=== PATIENT | male | born 1955 | race Caucasian/White ===

== ENCOUNTER → 2016-09-29 | Outpatient (CLI) | payer BC | LOC: MW.CHFP 10:28 | PROVIDERS: ATTEND Student in an Organized Health Care Education/Training Program | DX: J02.9 Acute pharyngitis, unspecified (principal) | CPT/HCPCS: 87081; 87880 ==

== ENCOUNTER 2018-07-11 09:33 | Day surgery (SDC) | payer BC ==
[~2018-07-11 09:33] MED LIST: Lactated Ringers 1,000 ML IV SCH; Sodium Chloride 0.9% 10 ML Syringe FLUSH PRN; Sodium Chloride 0.9% 2.5 ML Syringe FLUSH PRN
--- NOTE | 2018-07-11 10:23 | PCM.PREANE ---
Preanesthetic Assessment - Anesthesia/Transfusion/Family Hx Anesthesia History: Prior Anesthesia Reaction Other Type of Anesthesia Reaction Comment: very agitated when awakening Family History of Anesthesia Reaction: No Transfusion History: No Prior Transfusion(s) Intubation History: Unknown - Review of Systems General: No Symptoms Pulmonary: No Symptoms Cardiovascular: No Symptoms Gastrointestinal: No Symptoms, Other (h/o colon polyps) Neurological: No Symptoms Other: Reports: None - Physical Assessment O2 Sat by Pulse Oximetry: 94 Respiratory Rate: 16 Vital Signs: Last Vital Signs Temp 36.2 C 07/11/18 10:07 Pulse 74 07/11/18 10:07 Resp 16 07/11/18 10:07 BP 137/84 07/11/18 10:07 Pulse Ox 94 L 07/11/18 10:07 Height: 1.88 m Weight: 106.594 kg ASA Class: 3 Mental Status: Alert & Oriented x3 Airway Class: Mallampati = 2 Dentition: Reports: Normal Dentition Thyro-Mental Finger Breadths: 3 Mouth Opening Finger Breadths: 3 ROM/Head Extension: Full Lungs: Clear to Auscultation, Normal Respiratory Effort Cardiovascular: Regular Rate, Regular Rhythm - Allergies Allergies/Adverse Reactions: Allergies Allergy/AdvReac Type Severity Reaction Status Date / Time No Known Allergies Allergy Verified 07/06/18 12:57 - Blood Blood Available: No - Anesthesia Plan Pre-Op Medication Ordered: None - Acknowledgements Anesthesia Type Planned: MAC Pt an Appropriate Candidate for the Planned Anesthesia: Yes Alternatives and Risks of Anesthesia Discussed w Pt/Guardian: Yes Pt/Guardian Understands and Agrees with Anesthesia Plan: Yes PreAnesthesia Questionnaire HEENT History: Reports: Cataract, Hard of Hearing, Other (See Below) Other HEENT History: wears glasses Cardiovascular History: Reports: High Cholesterol, Hypertension Gastrointestinal History: Reports: Colon Polyp, GERD, Hiatal Hernia Other Gastrointestinal History: no GERD symptoms for 5 years Genitourinary History: Reports: None Musculoskeletal History: Reports: Fracture Other Musculoskeletal History: hx of fx L5 Endocrine/Metabolic History: Reports: Diabetes, Type II, Obesity/BMI 30+ - Past Surgical History GI Surgical History: Reports: Colonoscopy (x2 '12 and ) Male Surgical History: Reports: Vasectomy - SUBSTANCE USE Smoking Status *Q: Never Smoker Recreational Drug Use History: No - HOME MEDS Home Medications: Home Meds Aspirin [Adult Low Dose Aspirin EC] 81 mg PO DAILY 07/06/18 [History] Dapagliflozin Propanediol [Farxiga] 10 mg PO QAM 07/06/18 [History] Lisinopril/Hydrochlorothiazide [Lisinopril-Hctz 20-25 mg Tab] 1 tab PO QAM 07/06 [History] Simvastatin [Zocor] 40 mg PO BEDTIME 07/06/18 [History] metFORMIN HCl [Metformin HCl] 1,000 mg PO BID 07/06/18 [History] - CURRENT (IN HOUSE) MEDS Current Meds: Current Medications Lactated Ringer's (Ringers, Lactated) 1,000 mls @ 125 mls/hr IV ASDIRECTED TANNA Sodium Chloride (Saline Flush) 10 ml FLUSH ASDIRECTED PRN PRN Reason: Keep Vein Open Sodium Chloride (Saline Flush) 2.5 ml FLUSH ASDIRECTED PRN PRN Reason: Keep Vein Open Sodium Chloride (Saline Flush) 10 ml FLUSH ASDIRECTED PRN PRN Reason: Keep Vein Open Sodium Chloride (Saline Flush) 2.5 ml FLUSH ASDIRECTED PRN PRN Reason: Keep Vein Open
[2018-07-11] MEDS ORDERED: Propofol 200 MG/20 ML SDV ONE ×2 (11:32→12:22)
[2018-07-11] MEDS ORDERED: Lidocaine 2% 5 ML SDV ONE (11:33)
[2018-07-11] MEDS ORDERED: Midazolam 1 MG/ML 2 ML SDV ONE (11:33)
[2018-07-11] MEDS ORDERED: fentaNYL 100 MCG/2 ML SDV ONE (11:33)
--- NOTE | 2018-07-11 12:37 | PCM.OPNOTE ---
- General Post-Op/Procedure Note Date of Surgery/Procedure: 07/11/18 Operative Procedure(s): Screening colonoscopy Findings: Diverticulosis Pre Op Diagnosis: History of colon polyp Post-Op Diagnosis: Diverticulosis Anesthesia Technique: MAC Primary Surgeon: Miryam Asher Condition: Good
--- NOTE | 2018-07-11 12:52 | PCM48HPAN ---
Post Anesthesia Note - EVALUATION WITHIN 48HRS OF ANESTHETIC Vital Signs in Normal Range: Yes Patient Participated in Evaluation: Yes Respiratory Function Stable: Yes Airway Patent: Yes Cardiovascular Function Stable: Yes Hydration Status Stable: Yes Pain Control Satisfactory: Yes Nausea and Vomiting Control Satisfactory: Yes Mental Status Recovered: Yes Resp Rate: 9 - COMMENTS/OBSERVATIONS Free Text/Narrative:: no anesthesia problems
--- NOTE | 2018-07-11 13:12 | OR ---
SURGEON: DAPHNE VÁZQUEZ MD DATE OF PROCEDURE: 07/11/2018 PREOPERATIVE DIAGNOSIS: History of colon polyps. POSTOPERATIVE DIAGNOSIS: Diverticulosis. PROCEDURE PERFORMED: Screening colonoscopy. ANESTHESIA: MAC. INSTRUMENT USED: Olympus colonoscope. EXTENT OF EXAM: To the cecum. PREPARATION: Fair. LIMITATIONS: Fair prep. INDICATIONS: The patient is a 63-year-old male who is overdue for repeat colonoscopy. 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 I discussed the need for repeat colonoscopy. I explained the procedure, expected perioperative course, and risks including bleeding, infection, or damage to surrounding structures. The patient verbalized understanding and wishes to proceed. PROCEDURE IN DETAIL: The patient was brought to the endoscopy suite and placed in left lateral decubitus position. A time-out was completed verifying the patient's name, age, date of , allergies, and procedure to be performed. Monitored anesthesia care was induced and continuous oxygen was provided via nasal cannula throughout the procedure. After adequate sedation was achieved, a digital rectal exam was performed. This exam was within normal limits. A well-lubricated colonoscope was inserted into the rectum and advanced under direct visualization to the level of the cecum. This was somewhat difficult, given the patient had a large amount of liquid stool throughout the colon. I used copious amount of irrigation. I was able to suction and clear the majority of the liquid stool enough to safely get to the cecum. The cecum was identified by both visual and anatomic landmarks. Photograph was taken of the cecal cap. I attempted to retroflex the scope within the cecum, but due to the amount of liquid stool in the colon, I could not perform this safely. The scope was then fully withdrawn while examining the color, texture, anatomy, and integrity of the mucosa from the cecum to the anal canal. Again I had to continue my copious irrigation to try and get good visualization of the colonic mucosa. I was able to clear out adequately enough to safely say that there were no polyps or masses within the colon. He did have diverticulosis throughout the sigmoid colon. A photograph of this was taken. The scope was then brought into the rectum and retroflexed to allow visualization of the anal canal opening. This appeared normal and a photograph was taken. The scope was then straightened out and fully withdrawn. The cecum to anus time was 15 minutes. The patient tolerated the procedure well and was transferred to PACU in stable condition. ENDOSCOPIC DIAGNOSIS: Diverticulosis. RECOMMENDATIONS: Follow up in clinic in 5 years. The patient and I visited preoperatively about his diagnosis of diverticulosis and he is aware of that. SANTANA GARCIA /[id number]
== END 2018-07-11 13:10 | disposition home or self-care (01) ==
LOC: MW.SDS 09:33
PROVIDERS: ATTEND Surgery
DX: Z12.11 Encounter for screening for malignant neoplasm of colon (principal); K57.30 Diverticulosis of large intestine without perforation or abscess without bleeding; E11.42 Type 2 diabetes mellitus with diabetic polyneuropathy; E66.9 Obesity, unspecified; E78.00 Pure hypercholesterolemia, unspecified; I10 Essential (primary) hypertension; Z68.30 Body mass index [BMI] 30.0-30.9, adult; Z86.010 Personal history of colon polyps; Z79.82 Long term (current) use of aspirin; Z79.84 Long term (current) use of oral hypoglycemic drugs; Z79.899 Other long term (current) drug therapy
CPT/HCPCS: 45378; 82962; J2001; J2250; J2704; J3010; J7120

== ENCOUNTER 2018-10-02 15:43 | Observation (INO) | payer BC ==
[2018-10-02] MEDS ORDERED: Ketorolac 30 MG/ML SDV IVPUSH ONE (16:00)
[2018-10-02] MEDS ORDERED: Acetaminophen 500 MG Tab PO ONE (16:01)
--- NOTE | 2018-10-02 16:12 | EDM.PDOC ---
ED HPI GENERAL MEDICAL PROBLEM - General Chief Complaint: General Stated Complaint: SHAKING UNCONTROLABLE Time Seen by Provider: 10/02/18 16:11 Source of Information: Reports: Patient History Limitations: Reports: No Limitations - History of Present Illness INITIAL COMMENTS - FREE TEXT/NARRATIVE: HISTORY AND PHYSICAL: History of present illness: Patient is a 63-year-old male who presents to the emergency room with complaints of subjective fever and chills. He states last week he had intermittent chills which resulted in him feeling tremorous, lasting about 15- 30 minutes. Last night he had a similar episode where he felt warm to the touch and "couldn't stop shaking". He states this was associated with feeling slightly unbalanced last evening and into today. He states "right now I feel okay except a little shaky". Patient denies any recent head injury, headache, change in vision, syncope or near syncope. Denies any chest pain, back pain, shortness of breath or cough. Denies any abdominal pain, nausea, vomiting, diarrhea, constipation or dysuria. Has not noted any blood in urine or stool. Patient has been eating and drinking appropriately. Review of systems: As per history of present illness and below otherwise all systems reviewed and negative. Past medical history: As per history of present illness and as reviewed below otherwise noncontributory. Surgical history: As per history of present illness and as reviewed below otherwise noncontributory. Social history: See social history for further information Family history: As per history of present illness and as reviewed below otherwise noncontributory. Physical exam: General: Well-developed and well-nourished 63-year-old male. Alert and oriented. Nontoxic appearing and in no acute distress. HEENT: Atraumatic, normocephalic, pupils equal and reactive bilaterally, negative for conjunctival pallor or scleral icterus, mucous membranes moist, left TM is pinkish with good light reflex and no bulging. Right TM normal, throat clear, neck supple, nontender, trachea midline. No drooling or trismus noted. No meningeal signs. No hot potato voice noted. Lungs: Clear to auscultation, breath sounds equal bilaterally, chest nontender. Heart: S1S2, regular rate and rhythm without overt murmur Abdomen: Soft, nondistended, nontender. Negative for masses or hepatosplenomegaly. Negative for costovertebral tenderness. Pelvis: Stable nontender. Genitourinary: This was done with water plumber and consent of patient. Patient is uncircumcised with erythematous around the meatus with a clear milky discharge. No scrotal erythema, soft tissue swelling or pain with palpation. Rectal: Deferred. Skin: Intact, warm, dry. No lesions or rashes noted. Extremities: Atraumatic, moves all extremities per self without difficulty or deficits, negative for cords or calf pain. Neurovascular unremarkable. Neuro: Awake, alert, oriented. Cranial nerves II through XII unremarkable. Cerebellum unremarkable. Motor and sensory unremarkable throughout. Exam nonfocal. Notes: Patient does have a fever while here along with tachycardia. He does not have any source for his fever as he has no ear nose and throat complaint, respiratory or abdominal complaint. Examination is within normal limits with the exception of the left TM being slightly pinkish. Patient does have an elevated lactate and leukocytosis. Chest x-ray is unremarkable. Blood cultures and urine culture pending. Head CT shows a no acute findings. Did obtain a culture of the penile meatus; although does appear yeasty. Rocephin started at this time. Dr Pan was consult did on this case and agreeable to keeping him for observation. Patient and are aware and agreeable to plan of care. Diagnostics: CBC, CMP, UA, blood cultures 2, chest x-ray, EKG, head CT, lactate Therapeutics: IV fluid, Tylenol, Rocephin Impression: Leukocytosis Lactic acidemia Plan: Observation admission Definitive disposition and diagnosis as appropriate pending reevaluation and review of above. - Related Data Allergies Allergy/AdvReac Type Severity Reaction Status Date / Time No Known Allergies Allergy Verified 10/02/18 15:50 Home Meds: Home Meds Aspirin [Adult Low Dose Aspirin EC] 81 mg PO DAILY 07/06/18 [History] Dapagliflozin Propanediol [Farxiga] 10 mg PO QAM 07/06/18 [History] Lisinopril/Hydrochlorothiazide [Lisinopril-Hctz 20-25 mg Tab] 1 tab PO QAM 07/06 [History] Simvastatin [Zocor] 40 mg PO BEDTIME 07/06/18 [History] metFORMIN HCl [Metformin HCl] 1,000 mg PO BID 07/06/18 [History] Past Medical History HEENT History: Reports: Cataract, Hard of Hearing, Other (See Below) Other HEENT History: wears glasses Cardiovascular History: Reports: High Cholesterol, Hypertension Gastrointestinal History: Reports: Colon Polyp, GERD, Hiatal Hernia Other Gastrointestinal History: no GERD symptoms for 5 years Genitourinary History: Reports: None Musculoskeletal History: Reports: Fracture Other Musculoskeletal History: hx of fx L5 Endocrine/Metabolic History: Reports: Diabetes, Type II, Obesity/BMI 30+ - Infectious Disease History Infectious Disease History: Reports: Measles - Past Surgical History GI Surgical History: Reports: Colonoscopy Male Surgical History: Reports: Vasectomy Social & Family History - Family History Family Medical History: Noncontributory - Tobacco Use Smoking Status *Q: Never Smoker - Recreational Drug Use Recreational Drug Use: No ED ROS GENERAL - Review of Systems Review Of Systems: ROS reveals no pertinent complaints other than HPI. ED EXAM, GENERAL - Physical Exam Exam: See Below (See dictation) Course - Vital Signs Last Recorded V/S: Last Vital Signs Temp 103.7 F H 10/02/18 17:09 Pulse 117 H 10/02/18 17:09 Resp 20 10/02/18 17:09 BP 128/75 10/02/18 17:09 Pulse Ox 94 L 10/02/18 17:09 - Orders/Labs/Meds Orders: Active Orders 24 hr Category Date Time Status Admission Status [Patient Status] [ADT] Stat ADT 10/02/18 17:22 Ordered EKG Documentation Completion [RC] STAT Care 10/02/18 15:56 Active CULTURE BLOOD [BC] Stat Lab 10/02/18 16:09 Received CULTURE BLOOD [BC] Stat Lab 10/02/18 16:24 Received CULTURE WOUND [RM] Stat Lab 10/02/18 17:21 Ordered Sodium Chloride 0.9% [Normal Saline] 1,000 ml Med 10/02/18 16:31 Active IV STAT Blood Culture x2 Reflex Set [OM.PC] Stat Oth 10/02/18 15:56 Ordered Medication Orders Sodium Chloride (Normal Saline) 1,000 mls @ 999 mls/hr IV STAT ONE Stop: 10/02/18 17:31 Last Admin: 10/02/18 17:02 Dose: 999 mls/hr Labs: Laboratory Tests 10/02/18 10/02/18 10/02/18 Range/Units 16:09 16:09 16:09 WBC 10.51 (4.0-11.0) K/uL RBC 5.35 (4.50-5.90) M/uL Hgb 16.0 (13.0-17.0) g/dL Hct 47.1 (38.0-50.0) % MCV 88.0 (80.0-98.0) fL MCH 29.9 (27.0-32.0) pg MCHC 34.0 (31.0-37.0) g/dL RDW Std Deviation 42.3 (28.0-62.0) fl RDW Coeff of Efrain 13 (11.0-15.0) % Plt Count 302 (150-400) K/uL MPV 9.50 (7.40-12.00) fL Neut % (Auto) 92.5 H (48.0-80.0) % Lymph % (Auto) 5.5 L (16.0-40.0) % [place] % (Auto) 1.5 (0.0-15.0) % Eos % (Auto) 0.4 (0.0-7.0) % Baso % (Auto) 0.1 (0.0-1.5) % Neut # (Auto) 9.7 H (1.4-5.7) K/uL Lymph # (Auto) 0.6 (0.6-2.4) K/uL [place] # (Auto) 0.2 (0.0-0.8) K/uL Eos # (Auto) 0.0 (0.0-0.7) K/uL Baso # (Auto) 0.0 (0.0-0.1) K/uL Nucleated RBC % 0.0 /100WBC Nucleated RBCs # 0 K/uL Lactate 2.5 H (0.20-2.00) mmol/L Sodium 139 (136-148) mmol/L Potassium 3.2 L (3.5-5.1) mmol/L Chloride 99 (98-107) mmol/L Carbon Dioxide 27.0 (21.0-32.0) mmol/L BUN 20 H (7.0-18.0) mg/dL Creatinine 1.3 (0.8-1.3) mg/dL Est Cr Clr Drug Dosing 66.58 mL/min Estimated GFR (MDRD) 55.9 ml/min Glucose 149 H (74-106) mg/dL Calcium 9.2 (8.5-10.1) mg/dL Total Bilirubin 0.8 (0.2-1.0) mg/dL AST 14 L (15-37) IU/L ALT 25 (14-63) IU/L Alkaline Phosphatase 107 (46-116) U/L Total Protein 8.1 (6.4-8.2) g/dL Albumin 3.8 (3.4-5.0) g/dL Globulin 4.3 H (2.6-4.0) g/dL Albumin/Globulin Ratio 0.9 (0.9-1.6) Urine Color Urine Appearance Urine pH (5.0-8.0) Ur Specific [place] (1.001-1.035) Urine Protein (NEGATIVE) mg/dL Urine Glucose (UA) (NEGATIVE) mg/dL Urine Ketones (NEGATIVE) mg/dL Urine Occult Blood (NEGATIVE) Urine Nitrite (NEGATIVE) Urine Bilirubin (NEGATIVE) Urine Urobilinogen (<2.0) EU/dL Ur Leukocyte Esterase (NEGATIVE) Urine RBC (0-2/HPF) Urine WBC (0-5/HPF) Ur Epithelial Cells (NONE-FEW) Urine Bacteria (NEGATIVE) 10/02/18 Range/Units 16:35 WBC (4.0-11.0) K/uL RBC (4.50-5.90) M/uL Hgb (13.0-17.0) g/dL Hct (38.0-50.0) % MCV (80.0-98.0) fL MCH (27.0-32.0) pg MCHC (31.0-37.0) g/dL RDW Std Deviation (28.0-62.0) fl RDW Coeff of Efrain (11.0-15.0) % Plt Count (150-400) K/uL MPV (7.40-12.00) fL Neut % (Auto) (48.0-80.0) % Lymph % (Auto) (16.0-40.0) % [place] % (Auto) (0.0-15.0) % Eos % (Auto) (0.0-7.0) % Baso % (Auto) (0.0-1.5) % Neut # (Auto) (1.4-5.7) K/uL Lymph # (Auto) (0.6-2.4) K/uL [place] # (Auto) (0.0-0.8) K/uL Eos # (Auto) (0.0-0.7) K/uL Baso # (Auto) (0.0-0.1) K/uL Nucleated RBC % /100WBC Nucleated RBCs # K/uL Lactate (0.20-2.00) mmol/L Sodium (136-148) mmol/L Potassium (3.5-5.1) mmol/L Chloride (98-107) mmol/L Carbon Dioxide (21.0-32.0) mmol/L BUN (7.0-18.0) mg/dL Creatinine (0.8-1.3) mg/dL Est Cr Clr Drug Dosing mL/min Estimated GFR (MDRD) ml/min Glucose (74-106) mg/dL Calcium (8.5-10.1) mg/dL Total Bilirubin (0.2-1.0) mg/dL AST (15-37) IU/L ALT (14-63) IU/L Alkaline Phosphatase (46-116) U/L Total Protein (6.4-8.2) g/dL Albumin (3.4-5.0) g/dL Globulin (2.6-4.0) g/dL Albumin/Globulin Ratio (0.9-1.6) Urine Color YELLOW Urine Appearance CLEAR Urine pH 5.5 (5.0-8.0) Ur Specific [place] 1.025 (1.001-1.035) Urine Protein 30 H (NEGATIVE) mg/dL Urine Glucose (UA) >=1000 (NEGATIVE) mg/dL Urine Ketones NEGATIVE (NEGATIVE) mg/dL Urine Occult Blood TRACE-INTACT H (NEGATIVE) Urine Nitrite NEGATIVE (NEGATIVE) Urine Bilirubin NEGATIVE (NEGATIVE) Urine Urobilinogen 0.2 (<2.0) EU/dL Ur Leukocyte Esterase NEGATIVE (NEGATIVE) Urine RBC 0-1 (0-2/HPF) Urine WBC 0-2 (0-5/HPF) Ur Epithelial Cells FEW (NONE-FEW) Urine Bacteria FEW (NEGATIVE) Meds: Medications Generic Name Dose Route Start Last Admin Trade Name Freq PRN Reason Stop Dose Admin Sodium Chloride 1,000 mls @ 999 mls/hr 10/02/18 16:31 10/02/18 17:02 Normal Saline IV 10/02/18 17:31 999 mls/hr STAT ONE Administration Discontinued Medications Generic Name Dose Route Start Last Admin Trade Name Estuardo PRN Reason Stop Dose Admin Acetaminophen 1,000 mg 10/02/18 16:01 10/02/18 16:18 Tylenol Extra Strength PO 10/02/18 16:02 1,000 mg ONETIME ONE Administration Ceftriaxone Sodium/Dextrose 1 50 mls @ 100 mls/hr 10/02/18 16:39 10/02/18 17: 03 gm/ Premix IV 10/02/18 17:08 100 mls/hr ONETIME ONE Administration Ibuprofen 800 mg 10/02/18 17:19 Motrin PO 10/02/18 17:20 ONETIME ONE Ketorolac Tromethamine 30 mg 10/02/18 16:00 10/02/18 16:16 Toradol IVPUSH 10/02/18 16:01 Not Given ONETIME ONE Departure - Departure Time of Disposition: 17:26 Disposition: Refer to Observation Clinical Impression: Lactic acidemia Leukocytosis Qualifiers: Leukocytosis type: unspecified Qualified Code(s): D72.829 - Elevated white blood cell count, unspecified - Discharge Information Referrals: Madelin Jiménez MD [Primary Care Provider] - Forms: ED Department Discharge - My Orders Last 24 Hours: My Active Orders 10/02/18 15:56 EKG Documentation Completion [RC] STAT Blood Culture x2 Reflex Set [OM.PC] Stat 10/02/18 16:09 CULTURE BLOOD [BC] Stat 10/02/18 16:24 CULTURE BLOOD [BC] Stat 10/02/18 16:31 Sodium Chloride 0.9% [Normal Saline] 1,000 ml IV STAT 10/02/18 17:21 CULTURE WOUND [RM] Stat 10/02/18 17:22 Admission Status [Patient Status] [ADT] Stat - Assessment/Plan Last 24 Hours: My Active Orders 10/02/18 15:56 EKG Documentation Completion [RC] STAT Blood Culture x2 Reflex Set [OM.PC] Stat 10/02/18 16:09 CULTURE BLOOD [BC] Stat 10/02/18 16:24 CULTURE BLOOD [BC] Stat 10/02/18 16:31 Sodium Chloride 0.9% [Normal Saline] 1,000 ml IV STAT 10/02/18 17:21 CULTURE WOUND [RM] Stat 10/02/18 17:22 Admission Status [Patient Status] [ADT] Stat
[2018-10-02] MEDS ORDERED: Sodium Chloride 0.9% 1,000 ML IV ONE (16:31)
[2018-10-02] MEDS ORDERED: cefTRIAXone 1 GM in Premix Bag 1 BAG IV ONE (16:39)
--- NOTE | 2018-10-02 17:00 | CR ---
INDICATION: dizziness, fever, chills/shaking TECHNIQUE: Chest 1 view. COMPARISON: None. FINDINGS: Cardiovascular and mediastinum: Heart size and vasculature are normal in caliber and appearance. Mediastinum is within normal limits. Lungs and pleural space: Lungs are clear. No sign of infiltrate or mass. No sign of pleural effusion. No pneumothorax. Bones and soft tissues: No significant findings. IMPRESSION: Unremarkable chest. Dictated by: Yordy Chin MD @ 10/02/2018 16:59:15 (Electronically Signed)
--- NOTE | 2018-10-02 17:16 | CT ---
INDICATION: pain, shaking uncontrollable CT HEAD WITHOUT CONTRAST TECHNIQUE: Multiple axial CT images were performed through the head without intravenous contrast administration. COMPARISON: No previous studies are currently available for comparison. FINDINGS: No acute intracranial hemorrhage is identified. No extra-axial collections are evident and there is no mass effect or midline shift. Ventricles are normal in size and configuration. Brain parenchyma appears normal with unremarkable marie-white differentiation. Osseous structures are within normal limits and no fractures are seen. Included portions of the paranasal sinuses and mastoid air cells are normally aerated. IMPRESSION: Normal non-contrast head CT. JEAN-PIERRE PEACE MD [facility] Dictated by: Felipe Peace MD @ 10/02/2018 17:15:27 (Electronically Signed)
[2018-10-02] MEDS ORDERED: Ibuprofen 800 MG Tab PO ONE (17:19)
[2018-10-02] MEDS ORDERED: Docusate Sodium 100 MG Cap PO PRN (17:27)
[2018-10-02] MEDS ORDERED: oxyCODONE 5 MG Tab PO PRN (17:27)
[2018-10-02] MEDS ORDERED: Temazepam 15 MG Cap PO PRN (17:27)
--- NOTE | 2018-10-02 17:36 | PCM.HP ---
H&P History of Present Illness - General Date of Service: 10/03/18 Admit Problem/Dx: Admission Diagnosis/Problem Admission Diagnosis/Problem Lactic acidemia Source of Information: Patient, Family History Limitations: Reports: No Limitations - History of Present Illness Initial Comments - Free Text/Narative: The patient is a 63-year-old gentleman who has presented to the emergency department primarily with a complaint of fever and chills. The patient reports that last week he had episodes would last approximately 15-30 minutes. Last night patient reported that he had almost uncontrollable shaking and has had significant fevers at home. The patient says that he has had some dizziness to go with this. He has denied any upper respiratory type infection. No cough. No sputum production. The patient also has not had any travel outside the [place]. The patient also has denied any sick contacts at work although he says that 3 weeks ago most of his coworkers were sick with the flu. The patient has been taking [id number] medication for his fever and chills and this has not helped him. The patient also has denied any pain. The patient does have a history of diabetes that has been well-controlled his last hemoglobin A1c was at 7.1%. He also takes medication for hypertension. His blood pressure has been well controlled. Onset of Symptoms: Reports: Gradual Duration of Symptoms: Reports: Day(s):, Getting Worse Location: Reports: Generalized Quality: Reports: Ache Severity: Mild Improves with: Reports: Medication, Rest Worsens with: Reports: None Context: Denies: Sick Contact, Travel Associated Symptoms: Reports: Fever/Chills, Weakness. Denies: Chest Pain, cough w sputum - Related Data Allergies/Adverse Reactions: Allergies Allergy/AdvReac Type Severity Reaction Status Date / Time No Known Allergies Allergy Verified 10/02/18 15:50 Home Medications: Home Meds Aspirin [Adult Low Dose Aspirin EC] 81 mg PO DAILY 07/06/18 [History] Dapagliflozin Propanediol [Farxiga] 10 mg PO QAM 07/06/18 [History] Lisinopril/Hydrochlorothiazide [Lisinopril-Hctz 20-25 mg Tab] 1 tab PO QAM 07/06 [History] Simvastatin [Zocor] 40 mg PO BEDTIME 07/06/18 [History] metFORMIN HCl [Metformin HCl] 1,000 mg PO BID 07/06/18 [History] Past Medical History HEENT History: Reports: Cataract, Hard of Hearing, Other (See Below) Other HEENT History: wears glasses Cardiovascular History: Reports: High Cholesterol, Hypertension Respiratory History: Reports: None Gastrointestinal History: Reports: Colon Polyp, GERD, Hiatal Hernia Other Gastrointestinal History: no GERD symptoms for 5 years Genitourinary History: Reports: None Musculoskeletal History: Reports: Fracture Other Musculoskeletal History: hx of fx L5 Neurological History: Reports: None Psychiatric History: Reports: None Endocrine/Metabolic History: Reports: Diabetes, Type II, Obesity/BMI 30+ Hematologic History: Reports: None Immunologic History: Reports: None Oncologic (Cancer) History: Reports: None Dermatologic History: Reports: None - Infectious Disease History Infectious Disease History: Reports: Measles - Past Surgical History GI Surgical History: Reports: Colonoscopy Male Surgical History: Reports: Vasectomy Social & Family History - Family History Family Medical History: Noncontributory - Tobacco Use Smoking Status *Q: Never Smoker - Alcohol Use Alcohol Use History: No - Recreational Drug Use Recreational Drug Use: No - Living Situation & Occupation Living situation: Reports: , with Spouse Occupation: Employed H&P Review of Systems - Review of Systems: Review Of Systems: See Below General: Reports: Fever, Chills, Weakness, Night Sweats, Weight Loss HEENT: Reports: No Symptoms Pulmonary: Reports: No Symptoms Cardiovascular: Reports: No Symptoms Gastrointestinal: Reports: No Symptoms Genitourinary: Reports: No Symptoms Musculoskeletal: Reports: No Symptoms Skin: Reports: No Symptoms Psychiatric: Reports: No Symptoms Neurological: Reports: No Symptoms Hematologic/Lymphatic: Reports: No Symptoms Immunologic: Reports: No Symptoms Exam - Exam Exam: See Below - Vital Signs Vital Signs: Last Vital Signs Temp 39.8 C H 10/02/18 17:24 Pulse 117 H 10/02/18 17:09 Resp 20 10/02/18 17:09 BP 128/75 10/02/18 17:09 Pulse Ox 94 L 10/02/18 17:09 Weight: 98.43 kg - Exam Quality Assessment: No: Supplemental Oxygen General: Alert (Flushed), Oriented, Cooperative HEENT: Conjunctiva Clear, EACs Clear, EOMI, Nares Patent, Pupils Equal, PERRLA. No: Mucosa Moist & [place] (Dry) Neck: Supple, Trachea Midline Lungs: Clear to Auscultation, Normal Respiratory Effort Cardiovascular: Regular Rhythm, Normal S1, Normal S2, Tachycardia (104 on monitor) GI/Abdominal Exam: Normal Bowel Sounds, Soft, Non-Tender, No Distention Back Exam: Normal Inspection, Full Range of Motion Extremities: Normal Inspection, No Pedal Edema Skin: Warm, Intact, Moist Neurological: Cranial Nerves Intact Neuro Extensive - Mental Status: Alert, Oriented x3, Normal Mood/Affect Neuro Extensive - Motor, Sensory, Reflexes: CN II-XII Intact, Normal Gait Psychiatric: Alert, Normal Affect, Normal Mood - Patient Data Lab Results Last 24 hrs: Laboratory Results - last 24 hr 10/02/18 10/02/18 10/02/18 Range/Units 16:09 16:09 16:09 WBC 10.51 (4.0-11.0) K/uL RBC 5.35 (4.50-5.90) M/uL Hgb 16.0 (13.0-17.0) g/dL Hct 47.1 (38.0-50.0) % MCV 88.0 (80.0-98.0) fL MCH 29.9 (27.0-32.0) pg MCHC 34.0 (31.0-37.0) g/dL RDW Std Deviation 42.3 (28.0-62.0) fl RDW Coeff of [place] 13 (11.0-15.0) % Plt Count 302 (150-400) K/uL MPV 9.50 (7.40-12.00) fL Neut % (Auto) 92.5 H (48.0-80.0) % Lymph % (Auto) 5.5 L (16.0-40.0) % [place] % (Auto) 1.5 (0.0-15.0) % Eos % (Auto) 0.4 (0.0-7.0) % Baso % (Auto) 0.1 (0.0-1.5) % Neut # (Auto) 9.7 H (1.4-5.7) K/uL Lymph # (Auto) 0.6 (0.6-2.4) K/uL [place] # (Auto) 0.2 (0.0-0.8) K/uL Eos # (Auto) 0.0 (0.0-0.7) K/uL Baso # (Auto) 0.0 (0.0-0.1) K/uL Nucleated RBC % 0.0 /100WBC Nucleated RBCs # 0 K/uL Lactate 2.5 H (0.20-2.00) mmol/L Sodium 139 (136-148) mmol/L Potassium 3.2 L (3.5-5.1) mmol/L Chloride 99 (98-107) mmol/L Carbon Dioxide 27.0 (21.0-32.0) mmol/L BUN 20 H (7.0-18.0) mg/dL Creatinine 1.3 (0.8-1.3) mg/dL Est Cr Clr Drug Dosing 66.58 mL/min Estimated GFR (MDRD) 55.9 ml/min Glucose 149 H (74-106) mg/dL Calcium 9.2 (8.5-10.1) mg/dL Total Bilirubin 0.8 (0.2-1.0) mg/dL AST 14 L (15-37) IU/L ALT 25 (14-63) IU/L Alkaline Phosphatase 107 (46-116) U/L Total Protein 8.1 (6.4-8.2) g/dL Albumin 3.8 (3.4-5.0) g/dL Globulin 4.3 H (2.6-4.0) g/dL Albumin/Globulin Ratio 0.9 (0.9-1.6) Urine Color Urine Appearance Urine pH (5.0-8.0) Ur Specific [place] (1.001-1.035) Urine Protein (NEGATIVE) mg/dL Urine Glucose (UA) (NEGATIVE) mg/dL Urine Ketones (NEGATIVE) mg/dL Urine Occult Blood (NEGATIVE) Urine Nitrite (NEGATIVE) Urine Bilirubin (NEGATIVE) Urine Urobilinogen (<2.0) EU/dL Ur Leukocyte Esterase (NEGATIVE) Urine RBC (0-2/HPF) Urine WBC (0-5/HPF) Ur Epithelial Cells (NONE-FEW) Urine Bacteria (NEGATIVE) 10/02/18 Range/Units 16:35 WBC (4.0-11.0) K/uL RBC (4.50-5.90) M/uL Hgb (13.0-17.0) g/dL Hct (38.0-50.0) % MCV (80.0-98.0) fL MCH (27.0-32.0) pg MCHC (31.0-37.0) g/dL RDW Std Deviation (28.0-62.0) fl RDW Coeff of [place] (11.0-15.0) % Plt Count (150-400) K/uL MPV (7.40-12.00) fL Neut % (Auto) (48.0-80.0) % Lymph % (Auto) (16.0-40.0) % [place] % (Auto) (0.0-15.0) % Eos % (Auto) (0.0-7.0) % Baso % (Auto) (0.0-1.5) % Neut # (Auto) (1.4-5.7) K/uL Lymph # (Auto) (0.6-2.4) K/uL [place] # (Auto) (0.0-0.8) K/uL Eos # (Auto) (0.0-0.7) K/uL Baso # (Auto) (0.0-0.1) K/uL Nucleated RBC % /100WBC Nucleated RBCs # K/uL Lactate (0.20-2.00) mmol/L Sodium (136-148) mmol/L Potassium (3.5-5.1) mmol/L Chloride (98-107) mmol/L Carbon Dioxide (21.0-32.0) mmol/L BUN (7.0-18.0) mg/dL Creatinine (0.8-1.3) mg/dL Est Cr Clr Drug Dosing mL/min Estimated GFR (MDRD) ml/min Glucose (74-106) mg/dL Calcium (8.5-10.1) mg/dL Total Bilirubin (0.2-1.0) mg/dL AST (15-37) IU/L ALT (14-63) IU/L Alkaline Phosphatase (46-116) U/L Total Protein (6.4-8.2) g/dL Albumin (3.4-5.0) g/dL Globulin (2.6-4.0) g/dL Albumin/Globulin Ratio (0.9-1.6) Urine Color YELLOW Urine Appearance CLEAR Urine pH 5.5 (5.0-8.0) Ur Specific [place] 1.025 (1.001-1.035) Urine Protein 30 H (NEGATIVE) mg/dL Urine Glucose (UA) >=1000 (NEGATIVE) mg/dL Urine Ketones NEGATIVE (NEGATIVE) mg/dL Urine Occult Blood TRACE-INTACT H (NEGATIVE) Urine Nitrite NEGATIVE (NEGATIVE) Urine Bilirubin NEGATIVE (NEGATIVE) Urine Urobilinogen 0.2 (<2.0) EU/dL Ur Leukocyte Esterase NEGATIVE (NEGATIVE) Urine RBC 0-1 (0-2/HPF) Urine WBC 0-2 (0-5/HPF) Ur Epithelial Cells FEW (NONE-FEW) Urine Bacteria FEW (NEGATIVE) Result Diagrams: 10/03/18 06:30 10/02/18 16:09 - Problem List (1) Lactic acidemia SNOMED Code(s): 831907603 ICD Code: E87.2 - ACIDOSIS Status: Acute Priority: High Current Visit: Yes (2) Fever and chills SNOMED Code(s): 437219766 ICD Code: R50.9 - FEVER, UNSPECIFIED Status: Acute Priority: High Current Visit: Yes (3) Hypertension SNOMED Code(s): 49736266 ICD Code: I10 - ESSENTIAL (PRIMARY) HYPERTENSION Status: Chronic Priority : High Current Visit: Yes Qualifiers: Hypertension type: essential hypertension Qualified Code(s): I10 - Essential (primary) hypertension (4) Diabetes mellitus type 2, controlled SNOMED Code(s): 68944761, 272989341 ICD Code: E11.9 - TYPE 2 DIABETES MELLITUS WITHOUT COMPLICATIONS Status: Chronic Priority: Medium Current Visit: Yes Qualifiers: Diabetes mellitus local [employer] insulin use: without [facility] use Diabetes mellitus complication status: without complication Qualified Code(s): E11.9 - Type 2 diabetes mellitus without complications (5) Leukocytosis SNOMED Code(s): 611678903, 421525348 ICD Code: D72.829 - ELEVATED WHITE BLOOD CELL COUNT, UNSPECIFIED Status: Acute Priority: High Current Visit: Yes Qualifiers: Leukocytosis type: unspecified Qualified Code(s): D72.829 - Elevated white blood cell count, unspecified Problem List Initiated/Reviewed/Updated: Yes Orders Last 24hrs: Active Orders 24 hr Category Date Time Status Admission Status [Patient Status] [ADT] Stat ADT 10/02/18 17:22 Active Blood Glucose Check, Bedside [RC] TIDMEALS Care 10/02/18 17:27 Ordered Diabetes Education [RC] Click to Edit Care 10/02/18 17:28 Ordered EKG Documentation Completion [RC] STAT Care 10/02/18 15:56 Active Oxygen Therapy [RC] PRN Care 10/02/18 17:27 Ordered Up ad Yaneth [RC] ASDIRECTED Care 10/02/18 17:27 Ordered VTE/DVT Education [RC] PER UNIT ROUTINE Care 10/02/18 17:27 Ordered Vital Signs [RC] Q4H Care 10/02/18 17:27 Ordered [place] [employer] Diet [DIET] Diet 10/02/18 Breakfast Ordered CBC WITH AUTO DIFF [HEME] AM Lab 10/03/18 05:11 Ordered COMPREHENSIVE METABOLIC PN,CMP [CHEM] AM Lab 10/03/18 05:11 Ordered CULTURE BLOOD [BC] Stat Lab 10/02/18 16:09 Received CULTURE BLOOD [BC] Stat Lab 10/02/18 16:24 Received CULTURE WOUND [RM] Stat Lab 10/02/18 17:21 Ordered MAGNESIUM [CHEM] Routine Lab 10/02/18 17:27 Ordered Acetaminophen [Tylenol] Med 10/02/18 17:27 Ordered 650 mg PO Q4H PRN Dapagliflozin Propanediol [Farxiga] Med 10/03/18 09:00 Ordered 10 mg PO QAM Docusate Sodium [Colace] Med 10/02/18 17:27 Ordered 100 mg PO BID PRN Heparin Sodium Med 10/02/18 17:30 Ordered 5,000 units SUBCUT Q8H Insulin Aspart [NovoLOG] Med 10/03/18 07:30 Ordered See Protocol SUBCUT TIDAC Lisinopril/Hydrochlorothiazide [Lisinopril-Hctz Med 10/03/18 09:00 Ordered mg Tab] 1 tab PO QAM Simvastatin [Zocor] Med 10/02/18 21:00 Ordered 40 mg PO BEDTIME Sodium Chloride 0.9% [Normal Saline] 1,000 ml Med 10/02/18 17:30 Ordered IV ASDIRECTED Temazepam [Restoril] Med 10/02/18 17:27 Ordered 15 mg PO BEDTIME PRN metFORMIN HCl [Metformin HCl] Med 10/02/18 21:00 Ordered 1,000 mg PO BID oxyCODONE Med 10/02/18 17:27 Ordered 5 mg PO Q4H PRN Blood Culture x2 Reflex Set [OM.PC] Stat Oth 10/02/18 15:56 Ordered Glucose Management Sub Q Reflex [OM.PC] Click To Edit Oth 10/02/18 17:27 Ordered Resuscitation Status Routine Resus Stat 10/02/18 17:27 Ordered Medication Orders Acetaminophen (Tylenol) 650 mg PO Q4H PRN PRN Reason: Pain (Mild 1-3)/fever Docusate Sodium (Colace) 100 mg PO BID PRN PRN Reason: Constipation Lisinopril/HCTZ (Lisinopril-Hctz 10-12.5 Mg) 2 tab PO QAM TANNA Heparin Sodium (Porcine) (Heparin Sodium) 5,000 units SUBCUT Q8H TANNA Sodium Chloride (Normal Saline) 1,000 mls @ 100 mls/hr IV ASDIRECTED [facility] Insulin Aspart (Novolog) 0 unit SUBCUT TIDAC TANNA; Protocol Metformin HCl (Glucophage) 1,000 mg PO BIDMEALS TANNA Oxycodone HCl (Oxycodone) 5 mg PO Q4H PRN PRN Reason: Pain (moderate 4-6) [Farxiga] 10 Mg 1 each PO QAM TANNA Simvastatin (Zocor) 40 mg PO BEDTIME TANNA Temazepam (Restoril) 15 mg PO BEDTIME PRN PRN Reason: Sleep Assessment/Plan Comment:: The patient is a 63-year-old gentleman who will be admitted to observation primarily out of concern for metabolic acidemia consisting primarily of lactic acidosis. The patient subjectively has had a fever and this will be controlled with the use of Tylenol. Cultures have been taken. The patient will be kept on broad-spectrum antibiotics until source of infection is discovered. Antibiotics will be changed once a specific organism has been discovered. The patient also will have lactic acid levels checked until normalized. I'll continue the patient on his home medications with the exception of Farxiga. It has been noted that the patient has had large amount of glucosuria and this is secondary to the Farxiga. The patient will be kept on his appropriate ADA diet. He'll have Accu-Cheks before meals and at bedtime. The patient also has been prescribed DVT prophylaxis with the use of Lovenox. He has been encouraged to ambulate. Repeat laboratory testings have been ordered for the morning. Should be appropriate for discharge in 1-2 days.
[2018-10-02] MEDS: Sodium Chloride 0.9% 1,000 ML IV SCH (18:40)
[2018-10-02] MEDS: Levofloxacin/Dextrose 5%-Water 500 MG in Premix Bag 1 BAG IV SCH (18:53)
[2018-10-02] MEDS: metFORMIN 500 MG Tab PO SCH (18:55)
[2018-10-02] MEDS: Heparin Sodium 5,000 Units/ML Vial SUBCUT SCH (18:56)
[2018-10-02] MEDS: Simvastatin 40 MG Tab PO SCH (21:09)
[2018-10-02] MEDS ORDERED: Sodium Chloride 0.9% 1,000 ML IV SCH (23:00)
[2018-10-03] MEDS: Heparin Sodium 5,000 Units/ML Vial SUBCUT SCH ×3 (01:34→17:40)
[2018-10-03] MEDS: Acetaminophen 325 MG Tab PO PRN ×3 (03:00→19:29)
[2018-10-03] MEDS: Sodium Chloride 0.9% 1,000 ML IV SCH ×2 (06:07→21:11)
[2018-10-03 06:59] LABS: CHLORIDE,CL 106 mmol/L (98-107); SODIUM,NA 142 mmol/L (136-148)
[2018-10-03] MEDS ORDERED: Meclizine 25 MG Tab PO ONE (07:12)
[2018-10-03] MEDS: Insulin Aspart 100 Units/ML 3 ML Pen SUBCUT SCH ×3 (08:50→17:38)
[2018-10-03] MEDS: Lisinopril/Hydrochlorothiazide 10-12.5 MG Tab PO SCH (08:51)
[2018-10-03] MEDS: metFORMIN 500 MG Tab PO SCH (08:52)
[2018-10-03] MEDS ORDERED: FARXIGA 10 MG PO SCH (09:00)
[2018-10-03] MEDS: Piperacillin/Tazobactam 4.5 GM in Sodium Chloride 0.9% 100 ML IV SCH ×3 (09:02→20:01)
[2018-10-03] MEDS ORDERED: Potassium Chloride 20 MEQ Tab.ER PO ONE (10:08)
--- NOTE | 2018-10-03 10:10 | PCM.PN ---
<Raul Rose - Last Filed: 10/03/18 10:06> - General Info Date of Service: 10/03/18 Subjective Update: Feels a lot better today. However, spiked a max temp 38.3 overnight. He denies any pain, sob, nausea, vomiting - Review of Systems General: Reports: Other (see hpi) - Patient Data Vitals - Most Recent: Last Vital Signs Temp 36.1 C 10/03/18 07:08 Pulse 73 10/03/18 07:08 Resp 18 10/03/18 07:08 BP 118/69 10/03/18 07:08 Pulse Ox 96 10/03/18 07:08 Weight - Most Recent: 98.43 kg I&O - Last 24 Hours: Intake & Output 10/02/18 10/03/18 10/03/18 22:59 06:59 14:59 Intake Total 2491 Balance 2491 Lab Results Last 24 Hours: Laboratory Results - last 24 hr 10/02/18 10/02/18 10/02/18 Range/Units 16:09 16:09 16:09 WBC 10.51 (4.0-11.0) K/uL RBC 5.35 (4.50-5.90) M/uL Hgb 16.0 (13.0-17.0) g/dL Hct 47.1 (38.0-50.0) % MCV 88.0 (80.0-98.0) fL MCH 29.9 (27.0-32.0) pg MCHC 34.0 (31.0-37.0) g/dL RDW Std Deviation 42.3 (28.0-62.0) fl RDW Coeff of [place] 13 (11.0-15.0) % Plt Count 302 (150-400) K/uL MPV 9.50 (7.40-12.00) fL Neut % (Auto) 92.5 H (48.0-80.0) % Lymph % (Auto) 5.5 L (16.0-40.0) % [place] % (Auto) 1.5 (0.0-15.0) % Eos % (Auto) 0.4 (0.0-7.0) % Baso % (Auto) 0.1 (0.0-1.5) % Neut # (Auto) 9.7 H (1.4-5.7) K/uL Lymph # (Auto) 0.6 (0.6-2.4) K/uL [place] # (Auto) 0.2 (0.0-0.8) K/uL Eos # (Auto) 0.0 (0.0-0.7) K/uL Baso # (Auto) 0.0 (0.0-0.1) K/uL Nucleated RBC % 0.0 /100WBC Nucleated RBCs # 0 K/uL Lactate 2.5 H (0.20-2.00) mmol/L Sodium 139 (136-148) mmol/L Potassium 3.2 L (3.5-5.1) mmol/L Chloride 99 (98-107) mmol/L Carbon Dioxide 27.0 (21.0-32.0) mmol/L BUN 20 H (7.0-18.0) mg/dL Creatinine 1.3 (0.8-1.3) mg/dL Est Cr Clr Drug Dosing 66.58 mL/min Estimated GFR (MDRD) 55.9 ml/min Glucose 149 H (74-106) mg/dL POC Glucose (60-110) mg/dL Calcium 9.2 (8.5-10.1) mg/dL Magnesium (1.8-2.4) mg/dL Total Bilirubin 0.8 (0.2-1.0) mg/dL AST 14 L (15-37) IU/L ALT 25 (14-63) IU/L Alkaline Phosphatase 107 (46-116) U/L Total Protein 8.1 (6.4-8.2) g/dL Albumin 3.8 (3.4-5.0) g/dL Globulin 4.3 H (2.6-4.0) g/dL Albumin/Globulin Ratio 0.9 (0.9-1.6) Urine Color Urine Appearance Urine pH (5.0-8.0) Ur Specific [place] (1.001-1.035) Urine Protein (NEGATIVE) mg/dL Urine Glucose (UA) (NEGATIVE) mg/dL Urine Ketones (NEGATIVE) mg/dL Urine Occult Blood (NEGATIVE) Urine Nitrite (NEGATIVE) Urine Bilirubin (NEGATIVE) Urine Urobilinogen (<2.0) EU/dL Ur Leukocyte Esterase (NEGATIVE) Urine RBC (0-2/HPF) Urine WBC (0-5/HPF) Ur Epithelial Cells (NONE-FEW) Urine Bacteria (NEGATIVE) 10/02/18 10/02/18 10/02/18 Range/Units 16:09 16:35 22:12 WBC (4.0-11.0) K/uL RBC (4.50-5.90) M/uL Hgb (13.0-17.0) g/dL Hct (38.0-50.0) % MCV (80.0-98.0) fL MCH (27.0-32.0) pg MCHC (31.0-37.0) g/dL RDW Std Deviation (28.0-62.0) fl RDW Coeff of [place] (11.0-15.0) % Plt Count (150-400) K/uL MPV (7.40-12.00) fL Neut % (Auto) (48.0-80.0) % Lymph % (Auto) (16.0-40.0) % [place] % (Auto) (0.0-15.0) % Eos % (Auto) (0.0-7.0) % Baso % (Auto) (0.0-1.5) % Neut # (Auto) (1.4-5.7) K/uL Lymph # (Auto) (0.6-2.4) K/uL [place] # (Auto) (0.0-0.8) K/uL Eos # (Auto) (0.0-0.7) K/uL Baso # (Auto) (0.0-0.1) K/uL Nucleated RBC % /100WBC Nucleated RBCs # K/uL Lactate 4.3 H (0.20-2.00) mmol/L Sodium (136-148) mmol/L Potassium (3.5-5.1) mmol/L Chloride (98-107) mmol/L Carbon Dioxide (21.0-32.0) mmol/L BUN (7.0-18.0) mg/dL Creatinine (0.8-1.3) mg/dL Est Cr Clr Drug Dosing mL/min Estimated GFR (MDRD) ml/min Glucose (74-106) mg/dL POC Glucose (60-110) mg/dL Calcium (8.5-10.1) mg/dL Magnesium 1.9 (1.8-2.4) mg/dL Total Bilirubin (0.2-1.0) mg/dL AST (15-37) IU/L ALT (14-63) IU/L Alkaline Phosphatase (46-116) U/L Total Protein (6.4-8.2) g/dL Albumin (3.4-5.0) g/dL Globulin (2.6-4.0) g/dL Albumin/Globulin Ratio (0.9-1.6) Urine Color YELLOW Urine Appearance CLEAR Urine pH 5.5 (5.0-8.0) Ur Specific [place] 1.025 (1.001-1.035) Urine Protein 30 H (NEGATIVE) mg/dL Urine Glucose (UA) >=1000 (NEGATIVE) mg/dL Urine Ketones NEGATIVE (NEGATIVE) mg/dL Urine Occult Blood TRACE-INTACT H (NEGATIVE) Urine Nitrite NEGATIVE (NEGATIVE) Urine Bilirubin NEGATIVE (NEGATIVE) Urine Urobilinogen 0.2 (<2.0) EU/dL Ur Leukocyte Esterase NEGATIVE (NEGATIVE) Urine RBC 0-1 (0-2/HPF) Urine WBC 0-2 (0-5/HPF) Ur Epithelial Cells FEW (NONE-FEW) Urine Bacteria FEW (NEGATIVE) 10/03/18 10/03/18 10/03/18 Range/Units 00:41 06:30 06:30 WBC 11.86 H (4.0-11.0) K/uL RBC 4.39 L (4.50-5.90) M/uL Hgb 13.2 (13.0-17.0) g/dL Hct 38.6 (38.0-50.0) % MCV 87.9 (80.0-98.0) fL MCH 30.1 (27.0-32.0) pg MCHC 34.2 (31.0-37.0) g/dL RDW Std Deviation 42.7 (28.0-62.0) fl RDW Coeff of [place] 13 (11.0-15.0) % Plt Count 247 (150-400) K/uL MPV 9.30 (7.40-12.00) fL Neut % (Auto) 84.0 H (48.0-80.0) % Lymph % (Auto) 7.6 L (16.0-40.0) % [place] % (Auto) 7.9 (0.0-15.0) % Eos % (Auto) 0.3 (0.0-7.0) % Baso % (Auto) 0.2 (0.0-1.5) % Neut # (Auto) 10.0 H (1.4-5.7) K/uL Lymph # (Auto) 0.9 (0.6-2.4) K/uL [place] # (Auto) 0.9 H (0.0-0.8) K/uL Eos # (Auto) 0.0 (0.0-0.7) K/uL Baso # (Auto) 0.0 (0.0-0.1) K/uL Nucleated RBC % 0.0 /100WBC Nucleated RBCs # 0 K/uL Lactate 2.0 (0.20-2.00) mmol/L Sodium 142 (136-148) mmol/L Potassium 3.2 L (3.5-5.1) mmol/L Chloride 106 (98-107) mmol/L Carbon Dioxide 25.8 (21.0-32.0) mmol/L BUN 17 (7.0-18.0) mg/dL Creatinine 1.2 (0.8-1.3) mg/dL Est Cr Clr Drug Dosing 72.13 mL/min Estimated GFR (MDRD) > 60.0 ml/min Glucose 173 H (74-106) mg/dL POC Glucose (60-110) mg/dL Calcium 8.1 L (8.5-10.1) mg/dL Magnesium (1.8-2.4) mg/dL Total Bilirubin 0.7 (0.2-1.0) mg/dL AST 16 (15-37) IU/L ALT 19 (14-63) IU/L Alkaline Phosphatase 80 (46-116) U/L Total Protein 6.1 L (6.4-8.2) g/dL Albumin 2.7 L (3.4-5.0) g/dL Globulin 3.4 (2.6-4.0) g/dL Albumin/Globulin Ratio 0.8 L (0.9-1.6) Urine Color Urine Appearance Urine pH (5.0-8.0) Ur Specific [place] (1.001-1.035) Urine Protein (NEGATIVE) mg/dL Urine Glucose (UA) (NEGATIVE) mg/dL Urine Ketones (NEGATIVE) mg/dL Urine Occult Blood (NEGATIVE) Urine Nitrite (NEGATIVE) Urine Bilirubin (NEGATIVE) Urine Urobilinogen (<2.0) EU/dL Ur Leukocyte Esterase (NEGATIVE) Urine RBC (0-2/HPF) Urine WBC (0-5/HPF) Ur Epithelial Cells (NONE-FEW) Urine Bacteria (NEGATIVE) 10/03/18 10/03/18 10/03/18 Range/Units 06:30 06:30 08:21 WBC (4.0-11.0) K/uL RBC (4.50-5.90) M/uL Hgb (13.0-17.0) g/dL Hct (38.0-50.0) % MCV (80.0-98.0) fL MCH (27.0-32.0) pg MCHC (31.0-37.0) g/dL RDW Std Deviation (28.0-62.0) fl RDW Coeff of [place] (11.0-15.0) % Plt Count (150-400) K/uL MPV (7.40-12.00) fL Neut % (Auto) (48.0-80.0) % Lymph % (Auto) (16.0-40.0) % [place] % (Auto) (0.0-15.0) % Eos % (Auto) (0.0-7.0) % Baso % (Auto) (0.0-1.5) % Neut # (Auto) (1.4-5.7) K/uL Lymph # (Auto) (0.6-2.4) K/uL [place] # (Auto) (0.0-0.8) K/uL Eos # (Auto) (0.0-0.7) K/uL Baso # (Auto) (0.0-0.1) K/uL Nucleated RBC % /100WBC Nucleated RBCs # K/uL Lactate 0.9 (0.20-2.00) mmol/L Sodium (136-148) mmol/L Potassium (3.5-5.1) mmol/L Chloride (98-107) mmol/L Carbon Dioxide (21.0-32.0) mmol/L BUN (7.0-18.0) mg/dL Creatinine (0.8-1.3) mg/dL Est Cr Clr Drug Dosing mL/min Estimated GFR (MDRD) ml/min Glucose (74-106) mg/dL POC Glucose 169 H 194 H (60-110) mg/dL Calcium (8.5-10.1) mg/dL Magnesium (1.8-2.4) mg/dL Total Bilirubin (0.2-1.0) mg/dL AST (15-37) IU/L ALT (14-63) IU/L Alkaline Phosphatase (46-116) U/L Total Protein (6.4-8.2) g/dL Albumin (3.4-5.0) g/dL Globulin (2.6-4.0) g/dL Albumin/Globulin Ratio (0.9-1.6) Urine Color Urine Appearance Urine pH (5.0-8.0) Ur Specific [place] (1.001-1.035) Urine Protein (NEGATIVE) mg/dL Urine Glucose (UA) (NEGATIVE) mg/dL Urine Ketones (NEGATIVE) mg/dL Urine Occult Blood (NEGATIVE) Urine Nitrite (NEGATIVE) Urine Bilirubin (NEGATIVE) Urine Urobilinogen (<2.0) EU/dL Ur Leukocyte Esterase (NEGATIVE) Urine RBC (0-2/HPF) Urine WBC (0-5/HPF) Ur Epithelial Cells (NONE-FEW) Urine Bacteria (NEGATIVE) Med Orders - Current: Current Medications Acetaminophen (Tylenol) 650 mg PO Q4H PRN PRN Reason: Pain (Mild 1-3)/fever Last Admin: 10/03/18 03:00 Dose: 650 mg Docusate Sodium (Colace) 100 mg PO BID PRN PRN Reason: Constipation Lisinopril/HCTZ (Lisinopril-Hctz 10-12.5 Mg) 2 tab PO QAM [facility] Last Admin: 10/03/18 08:51 Dose: 2 tab Heparin Sodium (Porcine) (Heparin Sodium) 5,000 units SUBCUT Q8H [facility] Last Admin: 10/03/18 08:49 Dose: 5,000 units Sodium Chloride (Normal Saline) 1,000 mls @ 100 mls/hr IV ASDIRECTED [facility] Last Admin: 10/03/18 06:07 Dose: 100 mls/hr Levofloxacin/Dextrose 500 mg/ (Premix) 100 mls @ 100 mls/hr IV Q24H [facility] Last Admin: 10/02/18 18:53 Dose: 100 mls/hr Sodium Chloride (Normal Saline) 1,000 mls @ 999 mls/hr IV ASDIRECTED [facility] Last Admin: 10/02/18 23:05 Dose: 999 mls/hr Piperacillin Sod/Tazobactam (Sod 4.5 gm/ Sodium Chloride) 100 mls @ 100 mls/hr IV Q6H [facility] Last Admin: 10/03/18 09:02 Dose: 100 mls/hr Vancomycin HCl 1.5 gm/ Sodium (Chloride) 500 mls @ 250 mls/hr IV Q12H [facility] Insulin Aspart (Novolog) 0 unit SUBCUT TIDAC [facility]; Protocol Last Admin: 10/03/18 08:50 Dose: 2 units Metformin HCl (Glucophage) 1,000 mg PO BIDMEALS [facility] Last Admin: 10/03/18 08:52 Dose: 1,000 mg Oxycodone HCl (Oxycodone) 5 mg PO Q4H PRN PRN Reason: Pain (moderate 4-6) [Farxiga] 10 Mg 1 each PO QAM [facility] Last Admin: 10/03/18 09:05 Dose: Not Given Simvastatin (Zocor) 40 mg PO BEDTIME [facility] Last Admin: 10/02/18 21:09 Dose: 40 mg Temazepam (Restoril) 15 mg PO BEDTIME PRN PRN Reason: Sleep Vancomycin HCl (Pharmacy To Dose - Vancomycin) 1 dose .XX ASDIRECTED [facility] Discontinued Medications Acetaminophen (Tylenol Extra Strength) 1,000 mg PO ONETIME ONE Stop: 10/02/18 16:02 Last Admin: 10/02/18 16:18 Dose: 1,000 mg Sodium Chloride (Normal Saline) 1,000 mls @ 999 mls/hr IV STAT ONE Stop: 10/02/18 17:31 Last Admin: 10/02/18 17:02 Dose: 999 mls/hr Ceftriaxone Sodium/Dextrose 1 (gm/ Premix) 50 mls @ 100 mls/hr IV ONETIME ONE Stop: 10/02/18 17:08 Last Admin: 10/02/18 17:03 Dose: 100 mls/hr Ibuprofen (Motrin) 800 mg PO ONETIME ONE Stop: 10/02/18 17:20 Last Admin: 10/02/18 17:24 Dose: 800 mg Ketorolac Tromethamine (Toradol) 30 mg IVPUSH ONETIME ONE Stop: 10/02/18 16:01 Last Admin: 10/02/18 16:16 Dose: Not Given Meclizine HCl (Antivert) 25 mg PO ONETIME ONE Stop: 10/03/18 07:13 - Exam General: Alert, Oriented HEENT: Pupils Equal, Pupils Reactive, EOMI, Mucous Membr. Moist/[place] Lungs: Clear to Auscultation, Normal Respiratory Effort Cardiovascular: Regular Rate, Regular Rhythm GI/Abdominal Exam: Normal Bowel Sounds, Soft, Non-Tender Back Exam: Normal Inspection, Full Range of Motion Extremities: Normal Inspection, Normal Range of Motion, Non-Tender, No Pedal Edema, Normal Capillary Refill Peripheral Pulses: 1+: Dorsalis Pedis (L), Dorsalis Pedis (R) Skin: Warm, Dry, Intact - Problem List Review Problem List Initiated/Reviewed/Updated: Yes - My Orders Last 24 Hours: My Active Orders 10/03/18 08:19 Blood Culture x2 Reflex Set [OM.PC] Stat 10/03/18 08:30 Pharmacy to Dose - Vancomycin 1 dose .XX ASDIRECTED Piperacillin/Tazobactam [Piperacil-Tazobact] 4.5 gm Sodium Chloride 0.9% [ Normal Saline] 100 ml IV Q6H 10/03/18 08:33 CULTURE BLOOD [BC] Stat 10/03/18 08:50 CULTURE BLOOD [BC] Stat - Plan Plan:: The patient is a 63-year-old gentleman who will be admitted to observation primarily out of concern for metabolic acidemia consisting primarily of lactic acidosis. The patient subjectively has had a fever and this will be controlled with the use of Tylenol. Cultures have been taken. The patient will be kept on broad-spectrum antibiotics until source of infection is discovered. Antibiotics will be changed once a specific organism has been discovered. The patient also will have lactic acid levels checked until normalized. I'll continue the patient on his home medications with the exception of Farxiga. It has been noted that the patient has had large amount of glucosuria and this is secondary to the Farxiga. The patient will be kept on his appropriate ADA diet. He'll have Accu-Cheks before meals and at bedtime. The patient also has been prescribed DVT prophylaxis with the use of Lovenox. He has been encouraged to ambulate. Repeat laboratory testings have been ordered for the morning. Should be appropriate for discharge in 1-2 days. Assessment: #1. Lactic acidosis #2. Fever #3. T2DM #4. Leukocytosis #5. Hypokalemia Plan: #1. F/u on blood cultures #2. Start vanc/zosyn/levaquin #3. Continue IV fluids <VivianeSven heath - Last Filed: 10/03/18 10:51> - General Info Admission Dx/Problem (Free Text): I have seen and examined to patient independently of medical staff credentialing coordinator, Raul Rose MD. I have discussed the case for care of this patient with him. I have reviewed and approve of the plan of care as outlined by medical staff credentialing coordinator. Please see orders. - Patient Data Vitals - Most Recent: Last Vital Signs Temp 36.1 C 10/03/18 07:08 Pulse 73 10/03/18 07:08 Resp 18 10/03/18 07:08 BP 118/69 10/03/18 07:08 Pulse Ox 96 10/03/18 07:08 I&O - Last 24 Hours: Intake & Output 10/02/18 10/03/18 10/03/18 22:59 06:59 14:59 Intake Total 2491 Balance 2491 Lab Results Last 24 Hours: Laboratory Results - last 24 hr 10/02/18 10/02/18 10/02/18 Range/Units 16:09 16:09 16:09 WBC 10.51 (4.0-11.0) K/uL RBC 5.35 (4.50-5.90) M/uL Hgb 16.0 (13.0-17.0) g/dL Hct 47.1 (38.0-50.0) % MCV 88.0 (80.0-98.0) fL MCH 29.9 (27.0-32.0) pg MCHC 34.0 (31.0-37.0) g/dL RDW Std Deviation 42.3 (28.0-62.0) fl RDW Coeff of [place] 13 (11.0-15.0) % Plt Count 302 (150-400) K/uL MPV 9.50 (7.40-12.00) fL Neut % (Auto) 92.5 H (48.0-80.0) % Lymph % (Auto) 5.5 L (16.0-40.0) % [place] % (Auto) 1.5 (0.0-15.0) % Eos % (Auto) 0.4 (0.0-7.0) % Baso % (Auto) 0.1 (0.0-1.5) % Neut # (Auto) 9.7 H (1.4-5.7) K/uL Lymph # (Auto) 0.6 (0.6-2.4) K/uL [place] # (Auto) 0.2 (0.0-0.8) K/uL Eos # (Auto) 0.0 (0.0-0.7) K/uL Baso # (Auto) 0.0 (0.0-0.1) K/uL Nucleated RBC % 0.0 /100WBC Nucleated RBCs # 0 K/uL Lactate 2.5 H (0.20-2.00) mmol/L Sodium 139 (136-148) mmol/L Potassium 3.2 L (3.5-5.1) mmol/L Chloride 99 (98-107) mmol/L Carbon Dioxide 27.0 (21.0-32.0) mmol/L BUN 20 H (7.0-18.0) mg/dL Creatinine 1.3 (0.8-1.3) mg/dL Est Cr Clr Drug Dosing 66.58 mL/min Estimated GFR (MDRD) 55.9 ml/min Glucose 149 H (74-106) mg/dL POC Glucose (60-110) mg/dL Calcium 9.2 (8.5-10.1) mg/dL Magnesium (1.8-2.4) mg/dL Total Bilirubin 0.8 (0.2-1.0) mg/dL AST 14 L (15-37) IU/L ALT 25 (14-63) IU/L Alkaline Phosphatase 107 (46-116) U/L Total Protein 8.1 (6.4-8.2) g/dL Albumin 3.8 (3.4-5.0) g/dL Globulin 4.3 H (2.6-4.0) g/dL Albumin/Globulin Ratio 0.9 (0.9-1.6) Urine Color Urine Appearance Urine pH (5.0-8.0) Ur Specific [place] (1.001-1.035) Urine Protein (NEGATIVE) mg/dL Urine Glucose (UA) (NEGATIVE) mg/dL Urine Ketones (NEGATIVE) mg/dL Urine Occult Blood (NEGATIVE) Urine Nitrite (NEGATIVE) Urine Bilirubin (NEGATIVE) Urine Urobilinogen (<2.0) EU/dL Ur Leukocyte Esterase (NEGATIVE) Urine RBC (0-2/HPF) Urine WBC (0-5/HPF) Ur Epithelial Cells (NONE-FEW) Urine Bacteria (NEGATIVE) 10/02/18 10/02/18 10/02/18 Range/Units 16:09 16:35 22:12 WBC (4.0-11.0) K/uL RBC (4.50-5.90) M/uL Hgb (13.0-17.0) g/dL Hct (38.0-50.0) % MCV (80.0-98.0) fL MCH (27.0-32.0) pg MCHC (31.0-37.0) g/dL RDW Std Deviation (28.0-62.0) fl RDW Coeff of [place] (11.0-15.0) % Plt Count (150-400) K/uL MPV (7.40-12.00) fL Neut % (Auto) (48.0-80.0) % Lymph % (Auto) (16.0-40.0) % [place] % (Auto) (0.0-15.0) % Eos % (Auto) (0.0-7.0) % Baso % (Auto) (0.0-1.5) % Neut # (Auto) (1.4-5.7) K/uL Lymph # (Auto) (0.6-2.4) K/uL [place] # (Auto) (0.0-0.8) K/uL Eos # (Auto) (0.0-0.7) K/uL Baso # (Auto) (0.0-0.1) K/uL Nucleated RBC % /100WBC Nucleated RBCs # K/uL Lactate 4.3 H (0.20-2.00) mmol/L Sodium (136-148) mmol/L Potassium (3.5-5.1) mmol/L Chloride (98-107) mmol/L Carbon Dioxide (21.0-32.0) mmol/L BUN (7.0-18.0) mg/dL Creatinine (0.8-1.3) mg/dL Est Cr Clr Drug Dosing mL/min Estimated GFR (MDRD) ml/min Glucose (74-106) mg/dL POC Glucose (60-110) mg/dL Calcium (8.5-10.1) mg/dL Magnesium 1.9 (1.8-2.4) mg/dL Total Bilirubin (0.2-1.0) mg/dL AST (15-37) IU/L ALT (14-63) IU/L Alkaline Phosphatase (46-116) U/L Total Protein (6.4-8.2) g/dL Albumin (3.4-5.0) g/dL Globulin (2.6-4.0) g/dL Albumin/Globulin Ratio (0.9-1.6) Urine Color YELLOW Urine Appearance CLEAR Urine pH 5.5 (5.0-8.0) Ur Specific [place] 1.025 (1.001-1.035) Urine Protein 30 H (NEGATIVE) mg/dL Urine Glucose (UA) >=1000 (NEGATIVE) mg/dL Urine Ketones NEGATIVE (NEGATIVE) mg/dL Urine Occult Blood TRACE-INTACT H (NEGATIVE) Urine Nitrite NEGATIVE (NEGATIVE) Urine Bilirubin NEGATIVE (NEGATIVE) Urine Urobilinogen 0.2 (<2.0) EU/dL Ur Leukocyte Esterase NEGATIVE (NEGATIVE) Urine RBC 0-1 (0-2/HPF) Urine WBC 0-2 (0-5/HPF) Ur Epithelial Cells FEW (NONE-FEW) Urine Bacteria FEW (NEGATIVE) 10/03/18 10/03/18 10/03/18 Range/Units 00:41 06:30 06:30 WBC 11.86 H (4.0-11.0) K/uL RBC 4.39 L (4.50-5.90) M/uL Hgb 13.2 (13.0-17.0) g/dL Hct 38.6 (38.0-50.0) % MCV 87.9 (80.0-98.0) fL MCH 30.1 (27.0-32.0) pg MCHC 34.2 (31.0-37.0) g/dL RDW Std Deviation 42.7 (28.0-62.0) fl RDW Coeff of [place] 13 (11.0-15.0) % Plt Count 247 (150-400) K/uL MPV 9.30 (7.40-12.00) fL Neut % (Auto) 84.0 H (48.0-80.0) % Lymph % (Auto) 7.6 L (16.0-40.0) % [place] % (Auto) 7.9 (0.0-15.0) % Eos % (Auto) 0.3 (0.0-7.0) % Baso % (Auto) 0.2 (0.0-1.5) % Neut # (Auto) 10.0 H (1.4-5.7) K/uL Lymph # (Auto) 0.9 (0.6-2.4) K/uL [place] # (Auto) 0.9 H (0.0-0.8) K/uL Eos # (Auto) 0.0 (0.0-0.7) K/uL Baso # (Auto) 0.0 (0.0-0.1) K/uL Nucleated RBC % 0.0 /100WBC Nucleated RBCs # 0 K/uL Lactate 2.0 (0.20-2.00) mmol/L Sodium 142 (136-148) mmol/L Potassium 3.2 L (3.5-5.1) mmol/L Chloride 106 (98-107) mmol/L Carbon Dioxide 25.8 (21.0-32.0) mmol/L BUN 17 (7.0-18.0) mg/dL Creatinine 1.2 (0.8-1.3) mg/dL Est Cr Clr Drug Dosing 72.13 mL/min Estimated GFR (MDRD) > 60.0 ml/min Glucose 173 H (74-106) mg/dL POC Glucose (60-110) mg/dL Calcium 8.1 L (8.5-10.1) mg/dL Magnesium (1.8-2.4) mg/dL Total Bilirubin 0.7 (0.2-1.0) mg/dL AST 16 (15-37) IU/L ALT 19 (14-63) IU/L Alkaline Phosphatase 80 (46-116) U/L Total Protein 6.1 L (6.4-8.2) g/dL Albumin 2.7 L (3.4-5.0) g/dL Globulin 3.4 (2.6-4.0) g/dL Albumin/Globulin Ratio 0.8 L (0.9-1.6) Urine Color Urine Appearance Urine pH (5.0-8.0) Ur Specific [place] (1.001-1.035) Urine Protein (NEGATIVE) mg/dL Urine Glucose (UA) (NEGATIVE) mg/dL Urine Ketones (NEGATIVE) mg/dL Urine Occult Blood (NEGATIVE) Urine Nitrite (NEGATIVE) Urine Bilirubin (NEGATIVE) Urine Urobilinogen (<2.0) EU/dL Ur Leukocyte Esterase (NEGATIVE) Urine RBC (0-2/HPF) Urine WBC (0-5/HPF) Ur Epithelial Cells (NONE-FEW) Urine Bacteria (NEGATIVE) 10/03/18 10/03/18 10/03/18 Range/Units 06:30 06:30 08:21 WBC (4.0-11.0) K/uL RBC (4.50-5.90) M/uL Hgb (13.0-17.0) g/dL Hct (38.0-50.0) % MCV (80.0-98.0) fL MCH (27.0-32.0) pg MCHC (31.0-37.0) g/dL RDW Std Deviation (28.0-62.0) fl RDW Coeff of [place] (11.0-15.0) % Plt Count (150-400) K/uL MPV (7.40-12.00) fL Neut % (Auto) (48.0-80.0) % Lymph % (Auto) (16.0-40.0) % [place] % (Auto) (0.0-15.0) % Eos % (Auto) (0.0-7.0) % Baso % (Auto) (0.0-1.5) % Neut # (Auto) (1.4-5.7) K/uL Lymph # (Auto) (0.6-2.4) K/uL [place] # (Auto) (0.0-0.8) K/uL Eos # (Auto) (0.0-0.7) K/uL Baso # (Auto) (0.0-0.1) K/uL Nucleated RBC % /100WBC Nucleated RBCs # K/uL Lactate 0.9 (0.20-2.00) mmol/L Sodium (136-148) mmol/L Potassium (3.5-5.1) mmol/L Chloride (98-107) mmol/L Carbon Dioxide (21.0-32.0) mmol/L BUN (7.0-18.0) mg/dL Creatinine (0.8-1.3) mg/dL Est Cr Clr Drug Dosing mL/min Estimated GFR (MDRD) ml/min Glucose (74-106) mg/dL POC Glucose 169 H 194 H (60-110) mg/dL Calcium (8.5-10.1) mg/dL Magnesium (1.8-2.4) mg/dL Total Bilirubin (0.2-1.0) mg/dL AST (15-37) IU/L ALT (14-63) IU/L Alkaline Phosphatase (46-116) U/L Total Protein (6.4-8.2) g/dL Albumin (3.4-5.0) g/dL Globulin (2.6-4.0) g/dL Albumin/Globulin Ratio (0.9-1.6) Urine Color Urine Appearance Urine pH (5.0-8.0) Ur Specific [place] (1.001-1.035) Urine Protein (NEGATIVE) mg/dL Urine Glucose (UA) (NEGATIVE) mg/dL Urine Ketones (NEGATIVE) mg/dL Urine Occult Blood (NEGATIVE) Urine Nitrite (NEGATIVE) Urine Bilirubin (NEGATIVE) Urine Urobilinogen (<2.0) EU/dL Ur Leukocyte Esterase (NEGATIVE) Urine RBC (0-2/HPF) Urine WBC (0-5/HPF) Ur Epithelial Cells (NONE-FEW) Urine Bacteria (NEGATIVE) Med Orders - Current: Current Medications Acetaminophen (Tylenol) 650 mg PO Q4H PRN PRN Reason: Pain (Mild 1-3)/fever Last Admin: 10/03/18 03:00 Dose: 650 mg Docusate Sodium (Colace) 100 mg PO BID PRN PRN Reason: Constipation Lisinopril/HCTZ (Lisinopril-Hctz 10-12.5 Mg) 2 tab PO QAM [facility] Last Admin: 10/03/18 08:51 Dose: 2 tab Heparin Sodium (Porcine) (Heparin Sodium) 5,000 units SUBCUT Q8H [facility] Last Admin: 10/03/18 08:49 Dose: 5,000 units Sodium Chloride (Normal Saline) 1,000 mls @ 100 mls/hr IV ASDIRECTED [facility] Last Admin: 10/03/18 06:07 Dose: 100 mls/hr Levofloxacin/Dextrose 500 mg/ (Premix) 100 mls @ 100 mls/hr IV Q24H [facility] Last Admin: 10/02/18 18:53 Dose: 100 mls/hr Sodium Chloride (Normal Saline) 1,000 mls @ 999 mls/hr IV ASDIRECTED [facility] Last Admin: 10/02/18 23:05 Dose: 999 mls/hr Piperacillin Sod/Tazobactam (Sod 4.5 gm/ Sodium Chloride) 100 mls @ 100 mls/hr IV Q6H [facility] Last Admin: 10/03/18 09:02 Dose: 100 mls/hr Vancomycin HCl 1.5 gm/ Sodium (Chloride) 500 mls @ 250 mls/hr IV Q12H [facility] Insulin Aspart (Novolog) 0 unit SUBCUT TIDAC [facility]; Protocol Last Admin: 10/03/18 08:50 Dose: 2 units Metformin HCl (Glucophage) 1,000 mg PO BIDMEALS [facility] Last Admin: 10/03/18 08:52 Dose: 1,000 mg Oxycodone HCl (Oxycodone) 5 mg PO Q4H PRN PRN Reason: Pain (moderate 4-6) [Farxiga] 10 Mg 1 each PO QAM [facility] Last Admin: 10/03/18 09:05 Dose: Not Given Simvastatin (Zocor) 40 mg PO BEDTIME [facility] Last Admin: 10/02/18 21:09 Dose: 40 mg Temazepam (Restoril) 15 mg PO BEDTIME PRN PRN Reason: Sleep Vancomycin HCl (Pharmacy To Dose - Vancomycin) 1 dose .XX ASDIRECTED [facility] Discontinued Medications Acetaminophen (Tylenol Extra Strength) 1,000 mg PO ONETIME ONE Stop: 10/02/18 16:02 Last Admin: 10/02/18 16:18 Dose: 1,000 mg Sodium Chloride (Normal Saline) 1,000 mls @ 999 mls/hr IV STAT ONE Stop: 10/02/18 17:31 Last Admin: 10/02/18 17:02 Dose: 999 mls/hr Ceftriaxone Sodium/Dextrose 1 (gm/ Premix) 50 mls @ 100 mls/hr IV ONETIME ONE Stop: 10/02/18 17:08 Last Admin: 10/02/18 17:03 Dose: 100 mls/hr Ibuprofen (Motrin) 800 mg PO ONETIME ONE Stop: 10/02/18 17:20 Last Admin: 10/02/18 17:24 Dose: 800 mg Ketorolac Tromethamine (Toradol) 30 mg IVPUSH ONETIME ONE Stop: 10/02/18 16:01 Last Admin: 10/02/18 16:16 Dose: Not Given Meclizine HCl (Antivert) 25 mg PO ONETIME ONE Stop: 10/03/18 07:13 Potassium Chloride (Klor-Con M20) 40 meq PO ONETIME ONE Stop: 10/03/18 10:09 Last Admin: 10/03/18 10:38 Dose: 40 meq - Problem List & Annotations (1) Lactic acidemia SNOMED Code(s): 944928621 Code(s): E87.2 - ACIDOSIS Status: Acute Priority: High Current Visit: Yes (2) Fever and chills SNOMED Code(s): 015819329 Code(s): R50.9 - FEVER, UNSPECIFIED Status: Acute Priority: High Current Visit: Yes (3) Hypertension SNOMED Code(s): 62160353 Code(s): I10 - ESSENTIAL (PRIMARY) HYPERTENSION Status: Chronic Priority : High Current Visit: Yes Qualifiers: Hypertension type: essential hypertension Qualified Code(s): I10 - Essential (primary) hypertension (4) Diabetes mellitus type 2, controlled SNOMED Code(s): 38220074, 323371581 Code(s): E11.9 - TYPE 2 DIABETES MELLITUS WITHOUT COMPLICATIONS Status: Chronic Priority: Medium Current Visit: Yes Qualifiers: Diabetes mellitus jail insulin use: without jail use Diabetes mellitus complication status: without complication Qualified Code(s): E11.9 - Type 2 diabetes mellitus without complications (5) Leukocytosis SNOMED Code(s): 095211363, 596712299 Code(s): D72.829 - ELEVATED WHITE BLOOD CELL COUNT, UNSPECIFIED Status: Acute Priority: High Current Visit: Yes Qualifiers: Leukocytosis type: unspecified Qualified Code(s): D72.829 - Elevated white blood cell count, unspecified - My Orders Last 24 Hours: My Active Orders 10/02/18 17:27 Blood Glucose Check, Bedside [RC] TIDMEALS Oxygen Therapy [RC] PRN Up ad Yaneth [RC] ASDIRECTED VTE/DVT Education [RC] PER UNIT ROUTINE Vital Signs [RC] Q4H Acetaminophen [Tylenol] 650 mg PO Q4H PRN Docusate Sodium [Colace] 100 mg PO BID PRN Temazepam [Restoril] 15 mg PO BEDTIME PRN oxyCODONE 5 mg PO Q4H PRN Glucose Management Sub Q Reflex [OM.PC] Click To Edit Resuscitation Status Routine 10/02/18 17:28 Diabetes Education [RC] Click to Edit 10/02/18 17:30 Heparin Sodium 5,000 units SUBCUT Q8H Sodium Chloride 0.9% [Normal Saline] 1,000 ml IV ASDIRECTED 10/02/18 17:35 metFORMIN [Glucophage] 1,000 mg PO BIDMEALS 10/02/18 18:00 Levofloxacin/Dextrose 5%-Water [Levaquin in D5W 500 MG/100 ML] 500 mg Premix Bag 1 bag IV Q24H 10/02/18 21:00 Simvastatin [Zocor] 40 mg PO BEDTIME 10/02/18 23:00 Sodium Chloride 0.9% [Normal Saline] 1,000 ml IV ASDIRECTED 10/03/18 07:30 Insulin Aspart [NovoLOG] See Protocol SUBCUT TIDAC 10/03/18 09:00 Lisinopril/Hydrochlorothiazide [Lisinopril-HCTZ 10-12.5 MG] 2 tab PO QAM Patient's Own Medication [Ptom] 1 each PO QAM 10/03/18 11:00 Vancomycin 1.5 gm Sodium Chloride 0.9% [Normal Saline] 500 ml IV Q12H 10/05/18 10:30 VANCOMYCIN TROUGH [CHEM] Routine
[2018-10-03] MEDS ORDERED: Vancomycin 1.5 GM in Sodium Chloride 0.9% 500 ML IV SCH (11:00)
[2018-10-03] MEDS: Levofloxacin/Dextrose 5%-Water 500 MG in Premix Bag 1 BAG IV SCH (17:41)
[2018-10-03] MEDS: Simvastatin 40 MG Tab PO SCH (20:01)
[2018-10-04] MEDS: Heparin Sodium 5,000 Units/ML Vial SUBCUT SCH ×2 (01:36→09:05)
[2018-10-04] MEDS: Piperacillin/Tazobactam 4.5 GM in Sodium Chloride 0.9% 100 ML IV SCH ×2 (01:36→09:07)
[2018-10-04 05:48] LABS: CHLORIDE,CL 105 mmol/L (98-107); SODIUM,NA 140 mmol/L (136-148)
[2018-10-04] MEDS: Insulin Aspart 100 Units/ML 3 ML Pen SUBCUT SCH (06:36)
[2018-10-04] MEDS: Sodium Chloride 0.9% 1,000 ML IV SCH (07:13)
[2018-10-04] MEDS ORDERED: Potassium Chloride 20 MEQ Tab.ER PO ONE (08:10)
--- NOTE | 2018-10-04 08:48 | PCM.DCSUM1 ---
<Raul Rose - Last Filed: 10/04/18 08:44> Discharge Summary - Hospital Course Free Text/Narrative:: Admission date: 10/02/2018 Discharge date: 10/04/2018 Admission diagnosis: #1. Lactic acidemia #2. Fever and chills #3. HTN #4. T2DM #5. Leukocytosis Discharge diagnosis: #1. Fever #2. HTN #3. T2DM #4. Leukocytosis Hospital course: 63M that was admitted for further management after presenting to the ER w/ chief complaint of fever, chills. He was admitted for IV fluid resuscitation given elevated lactic acidosis. Patient had repeat fevers throughout his hospital stay, and was started on broad spectrum antibiotics. A specific source of infection was not found. He denied any sob, chest pain, abdominal pain, nausea or vomiting, headache. His white count responded to IV levaquin/zosyn. The day of discharge, he felt very comfortable denying a full ROS. He was discharged home with PO augmentin and advised to f/u promptly should his fever persist or symptoms re-occur. He felt comfortable with this plan. - Discharge Data Discharge Date: 10/04/18 Discharge Disposition: Home, Self-Care 01 Condition: Serious - Patient Instructions Diet: Usual Diet as Tolerated Activity: As Tolerated Notify Provider of: Fever, Increased Pain, Nausea and/or Vomiting - Discharge Plan Prescriptions/Med Rec: Amoxicillin/Clavulanate K [Augmentin 875-125 MG] 1 tab PO Q12H 5 Days #10 tablet Home Medications: Home Meds Aspirin [Adult Low Dose Aspirin EC] 81 mg PO DAILY 07/06/18 [History] Dapagliflozin Propanediol [Farxiga] 10 mg PO QAM 07/06/18 [History] Lisinopril/Hydrochlorothiazide [Lisinopril-Hctz 20-25 mg Tab] 1 tab PO QAM 07/06 [History] Simvastatin [Zocor] 40 mg PO BEDTIME 07/06/18 [History] metFORMIN HCl [Metformin HCl] 1,000 mg PO BID 07/06/18 [History] Amoxicillin/Clavulanate K [Augmentin 875-125 MG] 1 tab PO Q12H 5 Days #10 tablet 10/04/18 [Rx] Patient Handouts: Fever, Adult, Amoxicillin; Clavulanic Acid tablets Referrals: [facility] [Outside] Bobo Mosqueda MD [Physician] - 10/12/18 9:00 am - Discharge Summary/Plan Comment DC Time >30 min.: No - Patient Data Vitals - Most Recent: Last Vital Signs Temp 36.8 C 10/04/18 07:15 Pulse 84 10/04/18 07:15 Resp 16 10/04/18 07:15 BP 129/77 10/04/18 07:15 Pulse Ox 94 L 10/04/18 07:15 Weight - Most Recent: 98.43 kg I&O - Last 24 hours: Intake & Output 10/03/18 10/04/18 10/04/18 22:59 06:59 14:59 Intake Total 1863 1200 Output Total 0 975 Balance 1863 225 Lab Results - Last 24 hrs: Laboratory Results - last 24 hr 10/03/18 10/03/18 10/04/18 Range/Units 11:56 16:22 05:12 WBC 10.01 (4.0-11.0) K/uL RBC 4.44 L (4.50-5.90) M/uL Hgb 13.2 (13.0-17.0) g/dL Hct 38.9 (38.0-50.0) % MCV 87.6 (80.0-98.0) fL MCH 29.7 (27.0-32.0) pg MCHC 33.9 (31.0-37.0) g/dL RDW Std Deviation 43.1 (28.0-62.0) fl RDW Coeff of Efrain 13 (11.0-15.0) % Plt Count 233 (150-400) K/uL MPV 9.50 (7.40-12.00) fL Neut % (Auto) 76.8 (48.0-80.0) % Lymph % (Auto) 13.8 L (16.0-40.0) % [place] % (Auto) 9.0 (0.0-15.0) % Eos % (Auto) 0.3 (0.0-7.0) % Baso % (Auto) 0.1 (0.0-1.5) % Neut # (Auto) 7.7 H (1.4-5.7) K/uL Lymph # (Auto) 1.4 (0.6-2.4) K/uL [place] # (Auto) 0.9 H (0.0-0.8) K/uL Eos # (Auto) 0.0 (0.0-0.7) K/uL Baso # (Auto) 0.0 (0.0-0.1) K/uL Nucleated RBC % 0.0 /100WBC Nucleated RBCs # 0 K/uL Sodium (136-148) mmol/L Potassium (3.5-5.1) mmol/L Chloride (98-107) mmol/L Carbon Dioxide (21.0-32.0) mmol/L BUN (7.0-18.0) mg/dL Creatinine (0.8-1.3) mg/dL Est Cr Clr Drug Dosing mL/min Estimated GFR (MDRD) ml/min Glucose (74-106) mg/dL POC Glucose 128 H 239 H (60-110) mg/dL Calcium (8.5-10.1) mg/dL 10/04/18 10/04/18 Range/Units 05:12 06:20 WBC (4.0-11.0) K/uL RBC (4.50-5.90) M/uL Hgb (13.0-17.0) g/dL Hct (38.0-50.0) % MCV (80.0-98.0) fL MCH (27.0-32.0) pg MCHC (31.0-37.0) g/dL RDW Std Deviation (28.0-62.0) fl RDW Coeff of Efrain (11.0-15.0) % Plt Count (150-400) K/uL MPV (7.40-12.00) fL Neut % (Auto) (48.0-80.0) % Lymph % (Auto) (16.0-40.0) % Lagrange % (Auto) (0.0-15.0) % Eos % (Auto) (0.0-7.0) % Baso % (Auto) (0.0-1.5) % Neut # (Auto) (1.4-5.7) K/uL Lymph # (Auto) (0.6-2.4) K/uL [place] # (Auto) (0.0-0.8) K/uL Eos # (Auto) (0.0-0.7) K/uL Baso # (Auto) (0.0-0.1) K/uL Nucleated RBC % /100WBC Nucleated RBCs # K/uL Sodium 140 (136-148) mmol/L Potassium 3.2 L (3.5-5.1) mmol/L Chloride 105 (98-107) mmol/L Carbon Dioxide 24.4 (21.0-32.0) mmol/L BUN 16 (7.0-18.0) mg/dL Creatinine 1.2 (0.8-1.3) mg/dL Est Cr Clr Drug Dosing 72.13 mL/min Estimated GFR (MDRD) > 60.0 ml/min Glucose 152 H (74-106) mg/dL POC Glucose 135 H (60-110) mg/dL Calcium 8.2 L (8.5-10.1) mg/dL LUCÍA Results - Last 24 hrs: Microbiology 10/02/18 16:24 Aerobic Blood Culture - Preliminary Blood - Venous - Lab Draw NO GROWTH AFTER 1 DAY Anaerobic Blood Culture - Preliminary NO GROWTH AFTER 1 DAY 10/02/18 16:09 Aerobic Blood Culture - Preliminary Blood - Venous NO GROWTH AFTER 1 DAY Anaerobic Blood Culture - Preliminary NO GROWTH AFTER 1 DAY Med Orders - Current: Current Medications Acetaminophen (Tylenol) 650 mg PO Q4H PRN PRN Reason: Pain (Mild 1-3)/fever Last Admin: 10/03/18 19:29 Dose: 650 mg Docusate Sodium (Colace) 100 mg PO BID PRN PRN Reason: Constipation Lisinopril/HCTZ (Lisinopril-Hctz 10-12.5 Mg) 2 tab PO QAM [facility] Last Admin: 10/03/18 08:51 Dose: 2 tab Heparin Sodium (Porcine) (Heparin Sodium) 5,000 units SUBCUT Q8H [facility] Last Admin: 10/04/18 01:36 Dose: 5,000 units Sodium Chloride (Normal Saline) 1,000 mls @ 100 mls/hr IV ASDIRECTED [facility] Last Admin: 10/04/18 07:13 Dose: 100 mls/hr Levofloxacin/Dextrose 500 mg/ (Premix) 100 mls @ 100 mls/hr IV Q24H [facility] Last Admin: 10/03/18 17:41 Dose: 100 mls/hr Sodium Chloride (Normal Saline) 1,000 mls @ 999 mls/hr IV ASDIRECTED [facility] Last Admin: 10/02/18 23:05 Dose: 999 mls/hr Piperacillin Sod/Tazobactam (Sod 4.5 gm/ Sodium Chloride) 100 mls @ 100 mls/hr IV Q6H [facility] Last Admin: 10/04/18 01:36 Dose: 100 mls/hr Insulin Aspart (Novolog) 0 unit SUBCUT TIDAC [facility]; Protocol Last Admin: 10/04/18 06:36 Dose: Not Given Oxycodone HCl (Oxycodone) 5 mg PO Q4H PRN PRN Reason: Pain (moderate 4-6) Simvastatin (Zocor) 40 mg PO BEDTIME [facility] Last Admin: 10/03/18 20:01 Dose: 40 mg Temazepam (Restoril) 15 mg PO BEDTIME PRN PRN Reason: Sleep Discontinued Medications Acetaminophen (Tylenol Extra Strength) 1,000 mg PO ONETIME ONE Stop: 10/02/18 16:02 Last Admin: 10/02/18 16:18 Dose: 1,000 mg Sodium Chloride (Normal Saline) 1,000 mls @ 999 mls/hr IV STAT ONE Stop: 10/02/18 17:31 Last Admin: 10/02/18 17:02 Dose: 999 mls/hr Ceftriaxone Sodium/Dextrose 1 (gm/ Premix) 50 mls @ 100 mls/hr IV ONETIME ONE Stop: 10/02/18 17:08 Last Admin: 10/02/18 17:03 Dose: 100 mls/hr Vancomycin HCl 1.5 gm/ Sodium (Chloride) 500 mls @ 250 mls/hr IV Q12H [facility] Last Admin: 10/03/18 11:57 Dose: 250 mls/hr Ibuprofen (Motrin) 800 mg PO ONETIME ONE Stop: 10/02/18 17:20 Last Admin: 10/02/18 17:24 Dose: 800 mg Ketorolac Tromethamine (Toradol) 30 mg IVPUSH ONETIME ONE Stop: 10/02/18 16:01 Last Admin: 10/02/18 16:16 Dose: Not Given Meclizine HCl (Antivert) 25 mg PO ONETIME ONE Stop: 10/03/18 07:13 Metformin HCl (Glucophage) 1,000 mg PO BIDMEALS [facility] Last Admin: 10/03/18 08:52 Dose: 1,000 mg [Farxiga] 10 Mg 1 each PO QAM [facility] Last Admin: 10/03/18 09:05 Dose: Not Given Potassium Chloride (Klor-Con M20) 40 meq PO ONETIME ONE Stop: 10/03/18 10:09 Last Admin: 10/03/18 10:38 Dose: 40 meq Potassium Chloride (Klor-Con M20) 40 meq PO ONETIME ONE Stop: 10/04/18 08:11 Vancomycin HCl (Pharmacy To Dose - Vancomycin) 1 dose .XX ASDIRECTED [facility] <Sven Pan - Last Filed: 10/04/18 09:31> Discharge Summary - Hospital Course HPI Initial Comments: I have seen and examined to patient independently of spanish medical interpreter, Raul Rose MD. I have discussed the case for care of this patient with him. I have reviewed and approve of the plan of care as outlined by spanish medical interpreter.. Please see orders. - Discharge Diagnosis/Problem(s) (1) Lactic acidemia SNOMED Code(s): 037281013 ICD Code: E87.2 - ACIDOSIS Status: Acute Priority: High Current Visit: Yes (2) Fever and chills SNOMED Code(s): 614335659 ICD Code: R50.9 - FEVER, UNSPECIFIED Status: Acute Priority: High Current Visit: Yes (3) Hypertension SNOMED Code(s): 80565580 ICD Code: I10 - ESSENTIAL (PRIMARY) HYPERTENSION Status: Chronic Priority : High Current Visit: Yes Qualifiers: Hypertension type: essential hypertension Qualified Code(s): I10 - Essential (primary) hypertension (4) Diabetes mellitus type 2, controlled SNOMED Code(s): 38303795, 099052059 ICD Code: E11.9 - TYPE 2 DIABETES MELLITUS WITHOUT COMPLICATIONS Status: Chronic Priority: Medium Current Visit: Yes Qualifiers: Diabetes mellitus exterminator helper termite insulin use: without fdc use Diabetes mellitus complication status: without complication Qualified Code(s): E11.9 - Type 2 diabetes mellitus without complications (5) Leukocytosis SNOMED Code(s): 901682492, 357451651 ICD Code: D72.829 - ELEVATED WHITE BLOOD CELL COUNT, UNSPECIFIED Status: Acute Priority: High Current Visit: Yes Qualifiers: Leukocytosis type: unspecified Qualified Code(s): D72.829 - Elevated white blood cell count, unspecified - Patient Data Vitals - Most Recent: Last Vital Signs Temp 36.8 C 10/04/18 07:15 Pulse 84 10/04/18 07:15 Resp 16 10/04/18 07:15 BP 129/77 10/04/18 07:15 Pulse Ox 94 L 10/04/18 07:15 I&O - Last 24 hours: Intake & Output 10/03/18 10/04/18 10/04/18 22:59 06:59 14:59 Intake Total 1863 1200 100 Output Total 0 975 Balance 1863 225 100 Lab Results - Last 24 hrs: Laboratory Results - last 24 hr 10/03/18 10/03/18 10/04/18 Range/Units 11:56 16:22 05:12 WBC 10.01 (4.0-11.0) K/uL RBC 4.44 L (4.50-5.90) M/uL Hgb 13.2 (13.0-17.0) g/dL Hct 38.9 (38.0-50.0) % MCV 87.6 (80.0-98.0) fL MCH 29.7 (27.0-32.0) pg MCHC 33.9 (31.0-37.0) g/dL RDW Std Deviation 43.1 (28.0-62.0) fl RDW Coeff of Efrain 13 (11.0-15.0) % Plt Count 233 (150-400) K/uL MPV 9.50 (7.40-12.00) fL Neut % (Auto) 76.8 (48.0-80.0) % Lymph % (Auto) 13.8 L (16.0-40.0) % Lagrange % (Auto) 9.0 (0.0-15.0) % Eos % (Auto) 0.3 (0.0-7.0) % Baso % (Auto) 0.1 (0.0-1.5) % Neut # (Auto) 7.7 H (1.4-5.7) K/uL Lymph # (Auto) 1.4 (0.6-2.4) K/uL [place] # (Auto) 0.9 H (0.0-0.8) K/uL Eos # (Auto) 0.0 (0.0-0.7) K/uL Baso # (Auto) 0.0 (0.0-0.1) K/uL Nucleated RBC % 0.0 /100WBC Nucleated RBCs # 0 K/uL Sodium (136-148) mmol/L Potassium (3.5-5.1) mmol/L Chloride (98-107) mmol/L Carbon Dioxide (21.0-32.0) mmol/L BUN (7.0-18.0) mg/dL Creatinine (0.8-1.3) mg/dL Est Cr Clr Drug Dosing mL/min Estimated GFR (MDRD) ml/min Glucose (74-106) mg/dL POC Glucose 128 H 239 H (60-110) mg/dL Calcium (8.5-10.1) mg/dL 10/04/18 10/04/18 Range/Units 05:12 06:20 WBC (4.0-11.0) K/uL RBC (4.50-5.90) M/uL Hgb (13.0-17.0) g/dL Hct (38.0-50.0) % MCV (80.0-98.0) fL MCH (27.0-32.0) pg MCHC (31.0-37.0) g/dL RDW Std Deviation (28.0-62.0) fl RDW Coeff of Efrain (11.0-15.0) % Plt Count (150-400) K/uL MPV (7.40-12.00) fL Neut % (Auto) (48.0-80.0) % Lymph % (Auto) (16.0-40.0) % Lagrange % (Auto) (0.0-15.0) % Eos % (Auto) (0.0-7.0) % Baso % (Auto) (0.0-1.5) % Neut # (Auto) (1.4-5.7) K/uL Lymph # (Auto) (0.6-2.4) K/uL [place] # (Auto) (0.0-0.8) K/uL Eos # (Auto) (0.0-0.7) K/uL Baso # (Auto) (0.0-0.1) K/uL Nucleated RBC % /100WBC Nucleated RBCs # K/uL Sodium 140 (136-148) mmol/L Potassium 3.2 L (3.5-5.1) mmol/L Chloride 105 (98-107) mmol/L Carbon Dioxide 24.4 (21.0-32.0) mmol/L BUN 16 (7.0-18.0) mg/dL Creatinine 1.2 (0.8-1.3) mg/dL Est Cr Clr Drug Dosing 72.13 mL/min Estimated GFR (MDRD) > 60.0 ml/min Glucose 152 H (74-106) mg/dL POC Glucose 135 H (60-110) mg/dL Calcium 8.2 L (8.5-10.1) mg/dL LUCÍA Results - Last 24 hrs: Microbiology 10/03/18 08:50 Aerobic Blood Culture - Preliminary Blood - Venous - Lab Draw NO GROWTH AFTER 1 DAY Anaerobic Blood Culture - Preliminary NO GROWTH AFTER 1 DAY 10/03/18 08:33 Aerobic Blood Culture - Preliminary Blood - Venous NO GROWTH AFTER 1 DAY Anaerobic Blood Culture - Preliminary NO GROWTH AFTER 1 DAY 10/02/18 16:24 Aerobic Blood Culture - Preliminary Blood - Venous - Lab Draw NO GROWTH AFTER 1 DAY Anaerobic Blood Culture - Preliminary NO GROWTH AFTER 1 DAY 10/02/18 16:09 Aerobic Blood Culture - Preliminary Blood - Venous NO GROWTH AFTER 1 DAY Anaerobic Blood Culture - Preliminary NO GROWTH AFTER 1 DAY Med Orders - Current: Current Medications Acetaminophen (Tylenol) 650 mg PO Q4H PRN PRN Reason: Pain (Mild 1-3)/fever Last Admin: 10/03/18 19:29 Dose: 650 mg Docusate Sodium (Colace) 100 mg PO BID PRN PRN Reason: Constipation Lisinopril/HCTZ (Lisinopril-Hctz 10-12.5 Mg) 2 tab PO QAM [facility] Last Admin: 10/04/18 09:04 Dose: 2 tab Heparin Sodium (Porcine) (Heparin Sodium) 5,000 units SUBCUT Q8H [facility] Last Admin: 10/04/18 09:05 Dose: 5,000 units Sodium Chloride (Normal Saline) 1,000 mls @ 100 mls/hr IV ASDIRECTED [facility] Last Admin: 10/04/18 07:13 Dose: 100 mls/hr Levofloxacin/Dextrose 500 mg/ (Premix) 100 mls @ 100 mls/hr IV Q24H [facility] Last Admin: 10/03/18 17:41 Dose: 100 mls/hr Sodium Chloride (Normal Saline) 1,000 mls @ 999 mls/hr IV ASDIRECTED [facility] Last Admin: 10/02/18 23:05 Dose: 999 mls/hr Piperacillin Sod/Tazobactam (Sod 4.5 gm/ Sodium Chloride) 100 mls @ 100 mls/hr IV Q6H [facility] Last Admin: 10/04/18 09:07 Dose: 100 mls/hr Insulin Aspart (Novolog) 0 unit SUBCUT TIDAC [facility]; Protocol Last Admin: 10/04/18 06:36 Dose: Not Given Oxycodone HCl (Oxycodone) 5 mg PO Q4H PRN PRN Reason: Pain (moderate 4-6) Simvastatin (Zocor) 40 mg PO BEDTIME [facility] Last Admin: 10/03/18 20:01 Dose: 40 mg Temazepam (Restoril) 15 mg PO BEDTIME PRN PRN Reason: Sleep Discontinued Medications Acetaminophen (Tylenol Extra Strength) 1,000 mg PO ONETIME ONE Stop: 10/02/18 16:02 Last Admin: 10/02/18 16:18 Dose: 1,000 mg Sodium Chloride (Normal Saline) 1,000 mls @ 999 mls/hr IV STAT ONE Stop: 10/02/18 17:31 Last Admin: 10/02/18 17:02 Dose: 999 mls/hr Ceftriaxone Sodium/Dextrose 1 (gm/ Premix) 50 mls @ 100 mls/hr IV ONETIME ONE Stop: 10/02/18 17:08 Last Admin: 10/02/18 17:03 Dose: 100 mls/hr Vancomycin HCl 1.5 gm/ Sodium (Chloride) 500 mls @ 250 mls/hr IV Q12H [facility] Last Admin: 10/03/18 11:57 Dose: 250 mls/hr Ibuprofen (Motrin) 800 mg PO ONETIME ONE Stop: 10/02/18 17:20 Last Admin: 10/02/18 17:24 Dose: 800 mg Ketorolac Tromethamine (Toradol) 30 mg IVPUSH ONETIME ONE Stop: 10/02/18 16:01 Last Admin: 10/02/18 16:16 Dose: Not Given Meclizine HCl (Antivert) 25 mg PO ONETIME ONE Stop: 10/03/18 07:13 Metformin HCl (Glucophage) 1,000 mg PO BIDMEALS [facility] Last Admin: 10/03/18 08:52 Dose: 1,000 mg [Farxiga] 10 Mg 1 each PO QAM [facility] Last Admin: 10/03/18 09:05 Dose: Not Given Potassium Chloride (Klor-Con M20) 40 meq PO ONETIME ONE Stop: 10/03/18 10:09 Last Admin: 10/03/18 10:38 Dose: 40 meq Potassium Chloride (Klor-Con M20) 40 meq PO ONETIME ONE Stop: 10/04/18 08:11 Last Admin: 10/04/18 09:03 Dose: 40 meq Vancomycin HCl (Pharmacy To Dose - Vancomycin) 1 dose .XX ASDIRECTED [facility]
[2018-10-04] MEDS: Lisinopril/Hydrochlorothiazide 10-12.5 MG Tab PO SCH (09:04)
== END 2018-10-04 11:35 | disposition home or self-care (01) ==
LOC: MW.ED 15:43 → MW.MS 17:46
PROVIDERS: ADMIT Internal Medicine; ATTEND Internal Medicine
DX: R50.9 Fever, unspecified (principal); D72.829 Elevated white blood cell count, unspecified; E87.2 Acidosis; E87.6 Hypokalemia; I10 Essential (primary) hypertension; E11.9 Type 2 diabetes mellitus without complications; E78.00 Pure hypercholesterolemia, unspecified; Z79.82 Long term (current) use of aspirin; Z79.84 Long term (current) use of oral hypoglycemic drugs; Z79.899 Other long term (current) drug therapy
CPT/HCPCS: 36415; 70450; 71045; 80048; 80053; 81001; 82962; 83605; 83735; 85025; 87040; 87070; 87077; 87086; 87186; 93005; 96361; 96365; 96366; 96367; 96372; 96376; 99285; A4217; A9270; G0378; J0696; J1644; J1815; J1956; J2543; J3370; J7030; J7040

== ENCOUNTER 2019-05-13 09:04 | Emergency (ER) | payer BC, OTHER ==
--- NOTE | 2019-05-13 10:31 | CR ---
Indication: Shortness of breath. Technique: PA and lateral views the chest. Comparison: October 02, 2018. Findings: The heart is normal in size. The lungs are clear. No infiltrate, pleural effusion, or pneumothorax is identified. Impression: No acute cardiopulmonary process. Dictated by Faith Carr MD @ May 13 2019 10:27AM Signed by Dr. Faith Carr @ May 13 2019 10:28AM
--- NOTE | 2019-05-13 10:48 | EDM.PDOC ---
ED [facility] GENERAL MEDICAL PROBLEM - General Chief Complaint: ENT Problem Stated Complaint: sick Time Seen by Provider: 05/13/19 09:59 - History of Present Illness INITIAL COMMENTS - FREE TEXT/NARRATIVE: HPI 64-year-old obese male with HTN and DM presents for evaluation of ~3 days of cough, sinus congestion, mild sore throat, and mild shortness breath is only present after a coughing episode. No history of DVT, PE, immobilization, hemoptysis, leg swelling, surgery. No chest pain. No fevers, no chills. Denies rash, neck stiffness, headache, changes in vision or hearing, or ear pain. M/S/F/SocHx notable for: please see HPI; remainder reviewed with patient and in chart. ROS: Negative constitutional, eye, cardiovascular, pulmonary, GI, , MSK, skin , neurologic, psychiatric, endocrine unless noted in the HPI. Exam HR 97, RR 18, BP 130/88, T 37.0C, SaO2 95% on room air. Gen: Pleasant, non-toxic appearing, resting comfortably. HEENT: Normocephalic, atraumatic. Nasally phonation with sinus congestion. * Eyes - Bilateral eyes without injection, swelling, or discharge, no proptosis or periorbital erythema, swelling, warmth, or tenderness. * Mouth - Anterior oropharynx with MMM, no lesions appreciated, floor of the mouth is soft and without swelling. Posterior oropharynx with mild erythema but without swelling, exudate, lesions, uvula midline. * Nose - Nares with scant crusting and discharge. * Neck - Neck supple without posterior or anterior cervical chain lymphadenopathy bilaterally. Resp: Clear to auscultation bilaterally, normal work of breathing without accessory muscle usage. Card: Regular rate and rhythm with no murmurs, rubs or gallops. Extremities warm and well perfused. GI: Non-tender to palpation throughout all quadrants, no masses or organomegaly appreciated. : Deferred MSK: No visible deformities, strength and tone without visually appreciable deficit. Neuro: alert and oriented 3, no facial asymmetry, vision and hearing WNL. Heme/Lymph: Deferred Skin: Normal color with no visible lesions (other than noted above). Psych: Mood and affect appropriate. Labs / Imaging: CXR: no acute cardiopulmonary process. Influenza A & B negative. MDM Previous chart, nursing note, and vitals reviewed. A: 64-year-old obese male with HTN and DM presents for evaluation of ~3 days of cough, sinus congestion, mild sore throat, and mild shortness breath is only present after a coughing episode. DDx: viral rhinosinusitis, bacterial rhinosinusitis, pharyngitis (HSV vs viral NOS vs GAS vs bacterial NOS)], EBV, peritonsillar cellulitis, MEASURING MACHINE TENDER, RPA, Migel' s angina, epiglottitis. Evaluation: Overall presentation most consistent with a viral rhinosinutisis, given the duration of symptoms and overall well compensated appearance, antibiotic treatment is not currently indicated, rapid strep not indicated, oral mucosa without lesions consistent with HSV or candidiasis, low suspicion for peritonsillar cellulitis or abscess given the absence of asymmetric swelling or uvular deviation, RPA is unlikely as the patient can comfortably flex and extend their neck and swallow without difficulty. As phonation is intact and breathing is unlabored doubt epiglottitis. The floor of the mouth is without evidence of Migel's angina. Lemierre's disease was considered but as the patient does not have signs of MEASURING MACHINE TENDER or sepsis, further evaluation was not indicated. With respect to the patients shortness of breath his chest x-ray is clear (effectively excluding effusion, pneumonia, pneumothorax), this is only triggered following a coughing episode, and his pulmonary exam is without evidence of wheezing, as such this is likely secondary to his coughing. No features to warrant cardiac, dissection, or PE evaluation time the patients ED evaluation. ED Course: No clinically significant changes. Disposition: Discharge with return to care as needed. Return to care indications provided. RX for Tessalon Perles and cromolyn sodium provided. Impression: Rhinosinusitis. - Related Data Allergies Allergy/AdvReac Type Severity Reaction Status Date / Time vancomycin Allergy Severe Airway Verified 05/13/19 09:21 Tightness Home Meds: Home Meds Aspirin 81 mg PO DAILY 05/13/19 [History] Benzonatate [Tessalon Perle] 100 mg PO TID PRN #20 capsule 05/13/19 [Rx] Cromolyn Sodium [Nasal Allergy [place]] 13 ml NS TID PRN #1 spray.pump 05/13/19 [ Rx] Dapagliflozin Propanediol [Farxiga] 10 mg PO ASDIRECTED 05/13/19 [History] Lisinopril/Hydrochlorothiazide [Lisinopril-Hctz 20-25 mg Tab] 1 each PO ASDIRECTED 05/13/19 [History] Simvastatin [Zocor] 40 mg PO BEDTIME 05/13/19 [History] metFORMIN [Glucophage] 1,000 mg PO BIDMEALS 05/13/19 [History] Past Medical History HEENT History: Reports: Cataract, Hard of Hearing, Other (See Below) Other HEENT History: wears glasses Cardiovascular History: Reports: High Cholesterol, Hypertension Respiratory History: Reports: None Gastrointestinal History: Reports: Colon Polyp, GERD, Hiatal Hernia Other Gastrointestinal History: no GERD symptoms for 5 years Genitourinary History: Reports: None Musculoskeletal History: Reports: Fracture Other Musculoskeletal History: hx of fx L5 Neurological History: Reports: None Psychiatric History: Reports: None Endocrine/Metabolic History: Reports: Diabetes, Type II, Obesity/BMI 30+ Hematologic History: Reports: None Immunologic History: Reports: None Oncologic (Cancer) History: Reports: None Dermatologic History: Reports: None - Infectious Disease History Infectious Disease History: Reports: Chicken Pox, Measles, Mumps - Past Surgical History GI Surgical History: Reports: Colonoscopy Male Surgical History: Reports: Vasectomy Social & Family History - Family History Family Medical History: Noncontributory - Tobacco Use Smoking Status *Q: Never Smoker Second Hand Smoke Exposure: No - Caffeine Use Caffeine Use: Reports: None Other Caffeine Use: 1/2 pot of coffee a day - Recreational Drug Use Recreational Drug Use: No - Living Situation & Occupation Living situation: Reports: , with Spouse Occupation: Employed ED ROS GENERAL - Review of Systems Review Of Systems: See Below ED EXAM, GENERAL - Physical Exam Exam: See Below Course - Vital Signs Last Recorded V/S: Last Vital Signs Temp 37.0 C 05/13/19 09:24 Pulse 97 05/13/19 09:24 Resp 18 05/13/19 09:24 BP 130/88 05/13/19 09:24 Pulse Ox 95 05/13/19 09:24 Departure - Departure Time of Disposition: 10:44 (oh that kill we should call with you do that it is a yes it is, no wishing patient call) Disposition: Home, Self-Care 01 Clinical Impression: Rhinosinusitis - Discharge Information Prescriptions: Benzonatate [Tessalon Perle] 100 mg PO TID PRN #20 capsule PRN Reason: Cough Cromolyn Sodium [Nasal Allergy [place]] 13 ml NS TID PRN #1 spray.pump PRN Reason: nasal Referrals: Madelin Jiménez MD [Primary Care Provider] - Additional Instructions: You were in seen in the [facility] Emergency Department for evaluation of an upper respiratory tract infection. Please read and follow all of the instructions below. Please follow up with your primary care physician as needed. When calling for follow-up care, please make the office aware that this follow-up is from your recent emergency room visit. If for any reason you are refused follow-up, please contact the [facility] Emergency Department at and asked to speak to the emergency department charge nurse. Your care today was limited to identifying and treating emergent medical problems only. Many people have subtle differences in their test results that require follow up with their outpatient physician(s) to correctly determine if this represents a normal variation or concerning abnormality with respect to your specific health. The care given to you today was limited to identifying and treating emergent medical problems - you need to request a copy of all of your medical records from today's visit and follow up with your outpatient physician(s) to review both today's visit and your overall health. If you have any new symptoms or if you are at all concerned about your health please return immediately to the emergency department. Prescriptions: If you are uninsured or have financial difficulties with filling your prescription(s), you may consider using a free pharmacy discount service such as [employer] ([employer]) or [employer] ([employer]). These services allow you to search for a medication on your phone (or computer) and obtain a coupon that usually has a significant discount from the list ellis at a pharmacy. Your physician as well as [facility] does not have a financial relationship with either of these services. You may also wish to speak with your physician to determine if lower cost prescriptions are possible. Obtaining primary care: 1. [facility] provides pediatrics (children), family medicine (children, adults, and some obstetrical care), and internal medicine (adults). Further specialty care is also available. Same day appointments are available. They may be contacted at [phone] and are open Tuesday through Tuesday 8 AM to 5 PM. The [facility] clinics are located at [facility], [address] [place], [place] [address]. 2. [facility] offers family medicine, internal medicine, womens health, and further specialty care. [facility] may be contacted at [phone]. [facility] is located at [address] [facility] [address]. 3. If you have health insurance, please also contact your insurer for a list of accepting providers under your policy, you may contact these providers for further health care. Occupational health: Work related injuries may consider following up with [facility], . Occupational health services are located at [address] [place] [address] and are open Tuesday through Tuesday from 7: 30 am to 5:00 pm. Obstetrical and Gynecological Care: [facility], , Tuesday through Tuesday 8 AM to 5 PM. [address] [place] [address]. Eyecare: If you have an eye injury you should follow up with your shellfish dredge operator or with [facility], at [phone] or [phone] , they are located at [address] [place] [address]. Cough Home Care Instructions You were seen in the emergency department today for evaluation of your cough. Based upon the evaluation today your cough does not appear to be caused by bacterial pneumonia, rather a virus is the cause of your cough. These types of infections cannot be treated by antibiotics, your body will fight this infection and clear the virus. Most people get better in 7-10 days. It is not uncommon to have a mild nonproductive cough last for up to several weeks following the resolution of your illness. If you continue have a cough beyond 7- 10 days please follow-up with your primary care physician. You may do the following treatments to reduce your symptoms: * Nkfi-cep-gupphya cough medications containing dextromethorphan may reduce the frequency and severity of your coughing. Please take as directed on the bottle. Please read all warnings on the bottle. Do not take this medication if you have any allergies to any of the ingredients listed on the bottle. * Ibuprofen may be used to reduce fever, pain, and inflammation. You may take 600 mg (three 200 mg [id number]-[id number] tablets) every 6-8 hours. Please read the warnings below regarding ibuprofen. Do not take this medication if you are or allergic to ibuprofen, Motrin, Aleve, or naproxen. * Please stay well-hydrated and get adequate rest. * If you are a smoker please stop smoking. * Kqir-vkw-gyksbbw lozenges or tea with honey may be used for sore throat. Please return to the emergency department if any of the following occur: * Increasing fever. * Worsening cough or a cough that becomes productive of thick sputum. * A cough that temporarily gets better and then over the several days get significantly worse. This may occur if you developed a bacterial pneumonia following your viral infection. This rarely occurs and there is no prevention at this point in your infection. * Chest pain. * Shortness of breath or difficulty breathing. * If you are otherwise concerned about your health. Sepsis Event Note - Evaluation Sepsis Screening Result: No Definite Risk - Focused Exam Vital Signs: Vital Signs Temp Pulse Resp BP Pulse Ox 05/13/19 09:24 37.0 C 97 18 130/88 95 Date Exam was Performed: 05/13/19 Time Exam was Performed: 10:44
== END 2019-05-13 11:00 | disposition home or self-care (01) ==
LOC: MW.ED 09:04
DX: J32.9 Chronic sinusitis, unspecified (principal); Z88.1 Allergy status to other antibiotic agents; I10 Essential (primary) hypertension; E11.9 Type 2 diabetes mellitus without complications; E78.00 Pure hypercholesterolemia, unspecified; E66.9 Obesity, unspecified; Z79.82 Long term (current) use of aspirin; Z79.84 Long term (current) use of oral hypoglycemic drugs; Z68.28 Body mass index [BMI] 28.0-28.9, adult
CPT/HCPCS: 71046; 71046-26; 87804; 99283-25

== ENCOUNTER 2022-09-16 14:50 | Emergency (ER) | payer BC, OTHER ==
[2022-09-16] MEDS ORDERED: Diphtheria,Pertussis(Acell),Tetanus Vaccine 0.5 ML Syringe IM ONE (15:23)
[2022-09-16] MEDS ORDERED: Lidocaine/Epineph/Tetracaine 3 ML Syringe TOP STA (15:31)
== END 2022-09-16 16:40 | disposition home or self-care (01) ==
LOC: MW.ED 14:50
DX: S01.81XA Laceration without foreign body of other part of head, initial encounter (principal); I10 Essential (primary) hypertension; E11.9 Type 2 diabetes mellitus without complications; E78.00 Pure hypercholesterolemia, unspecified; E66.9 Obesity, unspecified; Z68.27 Body mass index [BMI] 27.0-27.9, adult; Z88.1 Allergy status to other antibiotic agents; Z79.82 Long term (current) use of aspirin; Z79.899 Other long term (current) drug therapy; Z23 Encounter for immunization; W31.89XA Contact with other specified machinery, initial encounter; Y92.89 Other specified places as the place of occurrence of the external cause; Y99.0 Civilian activity done for income or pay
CPT/HCPCS: 12013; 90471; 90715; 99283; A9270; 12011

== ENCOUNTER 2023-04-06 08:30 | Day surgery (SDC) | payer MEDICARE ==
[~2023-04-06 08:30] MED LIST changes: -Sodium Chloride 0.9% 10 ML Syringe FLUSH PRN; -Sodium Chloride 0.9% 2.5 ML Syringe FLUSH PRN
[2023-04-06] MEDS ORDERED: Propofol 200 MG/20 ML SDV ONE ×3 (10:18→11:08)
[2023-04-06] MEDS ORDERED: Lidocaine 2% 5 ML SDV ONE (10:18)
== END 2023-04-06 12:00 | disposition home or self-care (01) ==
LOC: MW.SDS 08:30
PROVIDERS: ATTEND Surgery
DX: Z12.11 Encounter for screening for malignant neoplasm of colon (principal); D12.2 Benign neoplasm of ascending colon; K51.40 Inflammatory polyps of colon without complications; K57.30 Diverticulosis of large intestine without perforation or abscess without bleeding; I10 Essential (primary) hypertension; E11.9 Type 2 diabetes mellitus without complications; E78.00 Pure hypercholesterolemia, unspecified; E66.3 Overweight; Z68.28 Body mass index [BMI] 28.0-28.9, adult; Z79.82 Long term (current) use of aspirin; Z79.84 Long term (current) use of oral hypoglycemic drugs; Z79.899 Other long term (current) drug therapy
CPT/HCPCS: 45385; 82947; J2704; J7120; J3490

== ENCOUNTER 2025-02-26 13:49 | Emergency (ER) | payer OTHER, MEDICARE ==
[2025-02-26] MEDS ORDERED: Sodium Chloride 0.9% 10 ML Syringe FLUSH PRN (13:51)
[2025-02-26] MEDS ORDERED: Sodium Chloride 0.9% 2.5 ML Syringe FLUSH PRN (13:51)
[2025-02-26 14:50] LABS: BASOPHILS ABSOLUTE AUTO 0.04 K/uL (0.00-0.20); BASOPHILS PERCENT AUTO 0.4 % (0.0-1.0); EOSINOPHILS ABSOLUTE AUTO 0.05 K/uL (0.00-0.45); EOSINOPHILS PERCENT AUTO 0.5 % (0.0-6.0); IMMATURE GRAN ABSOLUTE AUTO 0.09 K/uL (0.00-0.05); IMMATURE GRAN PERCENT AUTO 0.9 % (0.0-0.4); LYMPHOCYTES ABSOLUTE AUTO 1.06 K/uL (1.00-4.80); LYMPHOCYTES PERCENT AUTO 10.1 % (24.0-44.0); MEAN PLATELET VOLUME 9.3 fL (9.4-12.4); MONOCYTES ABSOLUTE AUTO 0.88 K/uL (0.00-0.80); MONOCYTES PERCENT AUTO 8.3 % (0.0-8.0); NEUTROPHILS ABSOLUTE AUTO 8.42 K/uL (1.80-7.70); NEUTROPHILS PERCENT AUTO 79.8 % (41.0-71.0); NRBC ABSOLUTE 0.00 K/uL (0.00-0.02); NRBC PERCENT 0.0 /100WBC (0.0-0.2); PLATELET COUNT,PLT 394 K/uL (150-400); RED BLOOD CELL COUNT 5.08 M/uL (4.52-5.90); WHITE BLOOD CELL COUNT,WBC 10.54 K/uL (3.9-11.3)
[2025-02-26 15:16] LABS: APPEARANCE,URINE CLEAR; GLUCOSE,URINE >=1000 mg/dL (NEGATIVE); OCCULT BLOOD,URINE NEGATIVE (NEGATIVE)
[2025-02-26 15:21] LABS: A/G RATIO 0.6 (0.9-1.6); ALANINE AMINOTRANSFERASE,ALT 207 IU/L (14-63); ASPARTATE AMNIOTRANSFERASE,AST 87 IU/L (15-37); BILIRUBIN TOTAL 1.5 mg/dL (0.2-1.0); BLOOD UREA NITROGEN,BUN 30 mg/dL (7.0-18.0); CARBON DIOXIDE,CO2 26.6 mmol/L (21.0-32.0); CHLORIDE,CL 97 mmol/L (98-107); CREATININE 1.6 mg/dL (0.8-1.3); ESTIMATED GFR 47 mL/min (>60); GLUCOSE RANDOM 189 mg/dL (74-106); POTASSIUM,K 3.7 mmol/L (3.5-5.1); PROTEIN TOTAL,TP 7.6 g/dL (6.4-8.2); SODIUM,NA 137 mmol/L (136-148)
[2025-02-26 15:50] LABS: LACTIC ACID 2.9 mmol/L (0.4-2.0)
[2025-02-26] MEDS: Iopamidol 755 MG/ML 500 ML Multipack Bottle IVPUSH STA (16:50)
== END 2025-02-26 21:21 ==
LOC: MW.ED 13:49
DX: K80.50 Calculus of bile duct without cholangitis or cholecystitis without obstruction (principal); N20.0 Calculus of kidney; E87.20 Acidosis, unspecified; K86.9 Disease of pancreas, unspecified; N17.9 Acute kidney failure, unspecified; I10 Essential (primary) hypertension; E11.9 Type 2 diabetes mellitus without complications; E78.00 Pure hypercholesterolemia, unspecified; Z75.3 Unavailability and inaccessibility of health-care facilities; Z79.899 Other long term (current) drug therapy; Z88.8 Allergy status to other drugs, medicaments and biological substances
CPT/HCPCS: 36415; 74177; 80053; 81003; 83605; 83690; 83735; 85025; 96361; 96365; 99285; J2543; J7030; Q9967; 99284

== ENCOUNTER 2025-04-10 23:19 | Emergency (ER) | payer OTHER, MEDICARE ==
[2025-04-10] MEDS ORDERED: Sodium Chloride 0.9% 10 ML Syringe FLUSH PRN (23:23)
[2025-04-10] MEDS ORDERED: Sodium Chloride 0.9% 2.5 ML Syringe FLUSH PRN (23:23)
[2025-04-10] MEDS: Ondansetron 4 MG/2 ML SDV IVPUSH ONE (23:36)
[2025-04-10] MEDS: Ketorolac 30 MG/ML SDV IVPUSH ONE (23:36)
[2025-04-10 23:42] LABS: BASOPHILS ABSOLUTE AUTO 0.01 K/uL (0.00-0.20); BASOPHILS PERCENT AUTO 0.2 % (0.0-1.0); EOSINOPHILS ABSOLUTE AUTO 0.01 K/uL (0.00-0.45); EOSINOPHILS PERCENT AUTO 0.2 % (0.0-6.0); IMMATURE GRAN ABSOLUTE AUTO 0.03 K/uL (0.00-0.05); IMMATURE GRAN PERCENT AUTO 0.5 % (0.0-0.4); LYMPHOCYTES ABSOLUTE AUTO 0.35 K/uL (1.00-4.80); LYMPHOCYTES PERCENT AUTO 5.3 % (24.0-44.0); MEAN PLATELET VOLUME 9.6 fL (9.4-12.4); MONOCYTES ABSOLUTE AUTO 0.03 K/uL (0.00-0.80); MONOCYTES PERCENT AUTO 0.5 % (0.0-8.0); NEUTROPHILS ABSOLUTE AUTO 6.16 K/uL (1.80-7.70); NEUTROPHILS PERCENT AUTO 93.3 % (41.0-71.0); NRBC ABSOLUTE 0.00 K/uL (0.00-0.02); NRBC PERCENT 0.0 /100WBC (0.0-0.2); PLATELET COUNT,PLT 227 K/uL (150-400); RED BLOOD CELL COUNT 4.91 M/uL (4.52-5.90); WHITE BLOOD CELL COUNT,WBC 6.59 K/uL (3.9-11.3)
[2025-04-10] MEDS: cefTRIAXone 2 GM in Water For Injection, Sterile 20 ML IVPUSH ONE (23:51)
[2025-04-11 00:05] LABS: A/G RATIO 0.7 (0.9-1.6); ALANINE AMINOTRANSFERASE,ALT 22.0 IU/L (14-63); ASPARTATE AMNIOTRANSFERASE,AST 25.0 IU/L (15-37); BILIRUBIN TOTAL 1.2 mg/dL (0.2-1.0); BLOOD UREA NITROGEN,BUN 22.0 mg/dL (7.0-18.0); CARBON DIOXIDE,CO2 25.5 mmol/L (21.0-32.0); CREATININE 1.6 mg/dL (0.8-1.3); EST CRCL DRUG DOSING (CG) 46.41 mL/min; GLUCOSE RANDOM 210.0 mg/dL (74-106); PROTEIN TOTAL,TP 7.0 g/dL (6.4-8.2)
[2025-04-11 00:10] LABS: ESTIMATED GFR 46.0 mL/min (>60); LACTIC ACID 2.6 mmol/L (0.4-2.0)
[2025-04-11 00:15] LABS: CHLORIDE,CL 100.0 mmol/L (98-107); POTASSIUM,K 2.7 mmol/L (3.5-5.1); SODIUM,NA 138.0 mmol/L (136-148)
[2025-04-11] MEDS: Potassium Chloride 20 MEQ Tab.ER PO ONE (00:37)
[2025-04-11 00:57] LABS: APPEARANCE,URINE CLEAR; GLUCOSE,URINE >=1000 mg/dL (NEGATIVE); OCCULT BLOOD,URINE TRACE-LYSED (NEGATIVE)
[2025-04-11 01:16] LABS: EPITHELIAL CELLS,URINE RARE (NONE-FEW)
[2025-04-11] MEDS: Iopamidol 755 MG/ML 500 ML Multipack Bottle IVPUSH STA (02:31)
[2025-04-11] MEDS: Norepinephrine Bit/D5W Premix 4 MG/250 ML BAG IV SCH ×2 (02:31→09:42)
[2025-04-11] MEDS: Norepinephrine Bit/D5W Premix 4 MG/250 ML BAG ONE (02:41)
[2025-04-11 03:02] LABS: LACTIC ACID 2.0 mmol/L (0.4-2.0)
[2025-04-11] MEDS: metroNIDAZOLE/Normal Saline 500 MG in Premix Bag 1 BAG IV ONE (03:08)
[2025-04-11] MEDS: Linezolid 600 MG/300 ML 600 MG in Premix Bag 1 BAG IV ONE (04:20)
== END 2025-04-11 10:15 ==
LOC: MW.ED 23:19
DX: A41.9 Sepsis, unspecified organism (principal); R65.21 Severe sepsis with septic shock; I10 Essential (primary) hypertension; E78.00 Pure hypercholesterolemia, unspecified; E11.9 Type 2 diabetes mellitus without complications; Z88.8 Allergy status to other drugs, medicaments and biological substances; Z79.82 Long term (current) use of aspirin; Z79.84 Long term (current) use of oral hypoglycemic drugs
CPT/HCPCS: 36415; 71045; 71260; 74177; 80053; 81001; 82947; 83605; 83690; 85025; 87040; 87077; 87186; 87428; 93005; 96361; 96365; 96366; 96367; 96375; 99285; A4216; A9270; J0696; J1836; J1885; J2020; J2405; J7030; Q9967; 93010